=== PATIENT | female | born 1995 | race Caucasian/White ===

== ENCOUNTER 2017-06-28 23:05 | Inpatient (IN) | payer MEDICAID, OTHER ==
[~2017-06-28] VITALS: Ht 139.7 cm; Wt 88.6 kg
[~2017-06-28 23:05] MED LIST: PREN-39 PO
[2017-06-28 23:48] VITALS: Ht 139.7 cm; Wt 88.6 kg
[2017-06-28 23:49] VITALS: BP 112/61; PULSE 94; RESP 20
[2017-06-29 00:42] LABS: ADD UMIC YES; UR ASCORBIC ACID NEGATIVE (NEGATIVE); UR BACTERIA FEW /HPF (NONE SEEN); UR BILIRUBIN (Dip) NEGATIVE (NEGATIVE); UR BLOOD (Dip) NEGATIVE (NEGATIVE); UR CLARITY SLIGHTLY CLOUDY (CLEAR); UR COLOR YELLOW (YELLOW); UR GLUCOSE (Dip) 3+ mg/dL (NEGATIVE); UR KETONES (Dip) NEGATIVE (NEGATIVE); UR LEUKOCYTE ESTERASE (Dip) 3+ Leu/ul (NEGATIVE); UR NITRITE (Dip) NEGATIVE (NEGATIVE); UR RBC 2 /HPF (0-5); UR SPECIFIC GRAVITY (Dip) 1.015 (1.003-1.030); UR SQUAMOUS EPITHELIAL CELL FEW /HPF (FEW); UR TOTAL PROTEIN (Dip) NEGATIVE (NEGATIVE); UR UROBILINOGEN (Dip) NEGATIVE (NEGATIVE)
--- NOTE | 2017-06-29 01:16 | RADRPT ---
PROCEDURE: Obstetrical ultrasound, limited. CLINICAL INDICATION: Pelvic pain. TECHNIQUE: Multiple sonographic images of the pelvis were obtained using transabdominal technique . Images were obtained with giang scale and color Doppler. The images were reviewed on a PACS works tation. COMPARISON: No prior studies are available for comparison. FINDINGS: There is a single living intrauterine gestation with the fetus in a vertex presentation. hear t tones of 154 beats per minute are identified. The placenta is anterior in location, grade 2. The re is normal amniotic fluid volume with an KENIA of 12.5 cm. There is no evidence of placenta previa or abruption. Measurements were made in order to determine age. The results are as follows: BPD =8.62 cm HC =31.28 cm AC =32.60 cm FL =6.51 cm. Estimated gestational age of approximately 35 weeks and 0 days. The estimated date of delivery is 08/03/2017. The EFW = 2674 +/- 401 grams. Estimated weight percentage equals 59.5%. IMPRESSION: Single viable intrauterine gestation of approximately 35 weeks and 0 days, with an ultrasound EDUAR of 08/03/2017. .Ari Aguayo MD, MD Date Time Electronically viewed and signed by .Ari Aguayo MD, MD on 06/29/2017 01:15 .T/
[2017-06-29] MEDS ORDERED: LACTATED RINGER'S 1,000 ML IV ONE (03:00)
[2017-06-29] MEDS ORDERED: CEFAZOLIN 2 GM/50 ML (PMX) 50 ML IVPB ONE (03:00)
[2017-06-29] MEDS ORDERED: LACTATED RINGER'S 1,000 ML IV* SCH (03:00)
[2017-06-29 04:05] LABS: BASOPHILS % 0.4 % (0.0-2.0); EOSINOPHILS # 0.2 10^3/ul (0.0-0.5); EOSINOPHILS % 2.3 % (0.0-7.0); HEMATOCRIT 31.5 % (37.0-47.0); HEMOGLOBIN 10.1 g/dl (12.0-16.0); LYMPHOCYTES # 2.4 10^3/ul (0.8-2.9); LYMPHOCYTES % 24.7 % (15.0-51.0); MEAN CORPUSCULAR HEMOGLOBIN 26.6 pg (29.0-33.0); MEAN CORPUSCULAR HGB CONC 32.1 g/dl (32.0-37.0); MEAN CORPUSCULAR VOLUME 82.9 fl (82.0-101.0); MEAN PLATELET VOLUME 10.7 fl (7.4-10.4); MONOCYTE # 0.8 10^3/ul (0.3-0.9); MONOCYTES % 8.1 % (0.0-11.0); NEUTROPHILS % 63.2 % (39.0-77.0); PLATELET COUNT 307 10^3/UL (140-415); RED CELL DISTRIBUTION WIDTH 14.3 % (11.5-14.5); WHITE BLOOD COUNT 9.5 10^3/ul (4.8-10.8)
[2017-06-29 04:07] LABS: INR 0.97; PROTIME 12.9 Sec (12.2-14.2)
[2017-06-29 04:08] LABS: PARTIAL THROMBOPLASTIN TIME 28.6 Sec (25.0-35.0)
[2017-06-29] MEDS ORDERED: LACTATED RINGER'S 1,000 ML IV SCH (06:46)
--- NOTE | 2017-06-29 07:00 | HP ---
Date/Time of Note Date/Time of Note DATE: 06/29/17 TIME: 06:55 OB - History Hx of Present Free Text/Dictation June 29, 2017 : 2 Para: 1 Care: Limited Care Other Concerns: 21-year-old 2 para 1 with IUP at 35 weeks and care in [facility] she recently moved. Was trying to transfer her care however could not establish care within any other facility. She had a history of 1. She complains of lower abdominal pain and scant amount of bleeding day after intercourse. She had not been seen in the last 3 weeks in any clinic due to recent move. She denies any leaking of fluid or decreased movement. Denies any complications during her course. Past Family/Social History * Past Medical, Surgical, Family and Obstetric Histories reviewed from chart. OB Admission Exam Vital Signs Vital Signs Vital Signs Date Time Temp Pulse Resp B/P Pulse Ox O2 Delivery O2 Flow Rate FiO2 06/28/17 23:49 98.0 94 20 112/61 Room Air Physical Exam HEENT: WNL Lungs: Clear Abdomen: WNL Reflexes: Normal Cervical Dilatation: None Effacement: 0% Heart Rate: 130's Accelerations: Accelerations Present Decelerations: Variable Decelerations Varibility: Moderate Contractions on Admission: < 5 Minutes Apart Intensity: Moderate Last 72 hourBlood Glucose Bedside Glucose - 72 Hours Test 06/29/17 03:36 Bedside Glucose 168mg/dL (70-220) Last 72 hours Lab Results CBC & BMP 06/29/17 03:25 Hemoglobin A1C Test 06/29/17 03:25 Hemoglobin A1c 6.2 H OB Assessment/Plan Other Assessment: IUP at 35 weeks Lower abdominal pain Uterine irritability with occasional contractions UTI noted in urine analysis Last follow-up her visit for the last 3 weeks due to recent move history 1 Patient currently does not have any OB to continue her visit. Noted to have elevated hemoglobin A1c, cannot rule out GDM . Possible new diagnosis No records are available Size consistent with dates by reported EDC Patient started on IV antibiotic Ancef and received IV hydration labs ordered including panel as well as GBS and GC chlamydia Due to elevated hemoglobin A1c and possibility of GDM, patient will be admitted to antepartum service for possible diabetic education. Continue IV fluids as well as treatment for UTI Perinatology consult RADHAMES CHU MD Jun 29, 2017 07:00
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
[2017-06-29] MEDS: DOCUSATE SODIUM 100 MG CAP PO SCH (12:00)
[2017-06-29] MEDS ORDERED: GLUCAGON 1 MG INJ IM PRN (12:30)
[2017-06-29] MEDS ORDERED: DEXTROSE 50% 50 ML SYRINGE IV PRN ×2 (12:30)
[2017-06-29] MEDS ORDERED: GLUCOSE GEL 15 GRAM TUBE BUCCAL PRN (12:30)
[2017-06-29] MEDS ORDERED: GLUCOSE GEL 15 GRAM TUBE PO PRN ×2 (12:30)
[2017-06-29] MEDS: INSULIN ASPART [NOVOLOG] 3 ML PEN SC SCH ×3 (12:33→19:55)
[2017-06-29] MEDS: CEFAZOLIN 2 GM/50 ML (PMX) 50 ML IV SCH ×3 (12:35→23:38)
[2017-06-29] MEDS: PRENATAL VITAMIN PO SCH (12:38)
[2017-06-29 14:35] LABS: ALBUMIN 3.3 g/dl (3.3-4.9); ALBUMIN/GLOBULIN RATIO 0.89; CALCIUM 8.7 mg/dl (8.4-10.2); CREATININE 0.47 mg/dl (0.44-1.00); POTASSIUM 3.9 mmol/L (3.5-5.1)
[2017-06-29] MEDS: ACCU-CHEK XX SCH ×2 (15:40→19:31)
--- NOTE | 2017-06-29 17:03 | PN ---
Date/Time of Note Date/Time of Note DATE: 06/29/17 TIME: 16:55 OB Subjective Subjective Subjective June 29, 2017 OB hospital consult This patient is a 21 years old 2 para 1 living 1 with estimated date of confinement of 08/02/2017 which makes her 35 weeks today . she came to the hospital complaining of vaginal bleeding ,bilateral lower abdominal pain .She had a history of a preeclampsia. Due to contraction and evidence of gestational diabetes with elevated blood sugar and hemoglobin A1c of 6.2 she was admitted in the hospital for further workup and treatment. she was placed on 1200 ADA diet, her blood type was A+ PT and PTT within normal limits, hepatitis Bs surface antigen was neck, on CBC her hemoglobin was 10.1 hematocrit 31.5 .urine test also showed 3+ protein 3+ leukoesterase 13 WBC and with the signs of infection and as a preventive measure for this diabetic lady she was placed on antibiotic Laboratory Tests Test 06/28/17 23:30 06/29/17 03:25 06/29/17 03:36 06/29/17 08:15 Urine Color YELLOW Urine Clarity SLIGHTLY CLOUDY Urine pH 6.0 Urine Specific [place] 1.015 Urine Ketones NEGATIVEmg/dL Urine Nitrite NEGATIVEmg/dL Urine Bilirubin NEGATIVEmg/dL Urine Urobilinogen NEGATIVEmg/dL Urine Leukocyte Esterase 3+Hailey/ul Urine Microscopic RBC 2/HPF Urine Microscopic WBC 13/HPF Urine Squamous Epithelial Cells FEW/HPF Urine Bacteria FEW/HPF Urine Hemoglobin NEGATIVEmg/dL Urine Glucose 3+mg/dL Urine Total Protein NEGATIVEmg/dl White Blood Count 9.510^3/ul Red Blood Count 3.8010^6/ul Hemoglobin 10.1g/dl Hematocrit 31.5% Mean Corpuscular Volume 82.9fl Mean Corpuscular Hemoglobin 26.6pg Mean Corpuscular Hemoglobin Concent 32.1g/dl Red Cell Distribution Width 14.3% Platelet Count 69569^3/UL Mean Platelet Volume 10.7fl Neutrophils % 63.2% Lymphocytes % 24.7% Monocytes % 8.1% Eosinophils % 2.3% Basophils % 0.4% Nucleated Red Blood Cells % 0.0/100WBC Neutrophils # 6.010^3/ul Lymphocytes # 2.410^3/ul Monocytes # 0.810^3/ul Eosinophils # 0.210^3/ul Basophils # 0.010^3/ul Nucleated Red Blood Cells # 0.010^3/ul Prothrombin Time 12.9Sec Prothrombin Time Ratio 1.0 INR International Normalized Ratio 0.97 Activated Partial Thromboplast Time 28.6Sec Glucose Level 176mg/dl Hemoglobin A1c 6.2% Rapid Plasma Reagin NONREACTIVE Hepatitis B Surface Antigen NEGATIVE HIV (1&2) Antibody NEGATIVE Bedside Glucose 168mg/dL Glucose 1 Hour Postprandial (Timed) 244mg/dl Test 06/29/17 11:42 06/29/17 14:05 06/29/17 15:47 Bedside Glucose 168mg/dL 130mg/dL Sodium Level 137mmol/L Potassium Level 3.9mmol/L Chloride Level 107mmol/L Carbon Dioxide Level 24mmol/L Anion Gap 10 Blood Urea Nitrogen 5mg/dl Creatinine 0.47mg/dl Glucose Level 122mg/dl Calcium Level 8.7mg/dl Total Bilirubin 0.0mg/dl Direct Bilirubin 0.00mg/dl Indirect Bilirubin 0.0mg/dl Aspartate Amino Transf (AST/SGOT) 24IU/L Alanine Aminotransferase (ALT/SGPT) 36IU/L Alkaline Phosphatase 195IU/L Total Protein 7.0g/dl Albumin 3.3g/dl Globulin 3.70g/dl Albumin/Globulin Ratio 0.89 Current Medications Medications (Trade) Dose Ordered Sig/French Route PRN Reason Start Time Stop Time Status Last Admin Dose Admin Lactated Ringer's 1,000 ml @ 125 mls/hr Q8H IV* 06/29/17 03:00 06/29/17 07:28 DC 06/29/17 04:54 Cefazolin Sodium/ Dextrose 50 ml @ 100 mls/hr ONCE ONCE IVPB 06/29/17 03:00 06/29/17 03:29 DC 06/29/17 03:28 Lactated Ringer's 1,000 ml @ 1,000 mls/hr Q1H ONCE IV 06/29/17 03:00 06/29/17 03:59 DC 06/29/17 03:25 Lactated Ringer's 1,000 ml @ 100 mls/hr Q10H IV 06/29/17 06:46 06/29/17 13:53 Cefazolin Sodium/ Dextrose (Ancef 2 Gm/50 ml (Pmx)) 50 ml @ 100 mls/hr Q8 IV 06/29/17 11:30 06/29/17 12:35 Prenat Multivit/ [place]/Iron/Folic Ac () 1 tab DAILY PO 06/29/17 09:00 06/29/17 12:38 Docusate Sodium (Colace) 100 mg DAILY PO 06/29/17 09:00 Insulin Aspart (Novolog Insulin Pen) 2 HOURS AFTER MEALS SC 06/29/17 14:00 06/29/17 12:33 Diagnostic Test (Pha) (Accu-Chek) 1 ea FBSPP XX 06/29/17 14:00 Miscellaneous Information (* Miscellaneous Pharmacy Order) 1 ea OB HYPOGLYCEMIA ONCE XX 06/29/17 12:00 06/29/17 12:02 DC 06/29/17 12:51 Miscellaneous Information 1 ea NOTE XX 06/29/17 12:30 Glucose (Glutose) 15 gm Q15M PRN PO DECREASED GLUCOSE 06/29/17 12:30 Glucose (Glutose) 22.5 gm Q15M PRN PO DECREASED GLUCOSE 06/29/17 12:30 Dextrose (D50w Syringe) 25 ml Q15M PRN IV DECREASED GLUCOSE 06/29/17 12:30 Dextrose (D50w Syringe) 50 ml Q15M PRN IV DECREASED GLUCOSE 06/29/17 12:30 Glucagon (Glucagen) 1 mg Q15M PRN IM DECREASED GLUCOSE 06/29/17 12:30 Glucose (Glutose) 15 gm Q15M PRN BUCCAL DECREASED GLUCOSE 06/29/17 12:30 Prenat Multivit/ [place]/Iron/Folic Ac () 1 tab DAILY PO 06/30/17 09:00 Prenat Multivit/ Manager Progressive Care/Iron/Folic Ac () 1 tab DAILY PO 06/30/17 09:00 UNV . On ultrasound studies the placenta was anterior' a single live intrauterine gestation in vertex presentation. her KENIA was 12.5 cm no evidence of placenta previa ' her estimated gestational age was 35 weeks with EDC of 08/03/2017, her estimated weight was 2674 401 g With these finding the treatment of possible urinary tract infection as well as gestational diabetes was started .she also will be seen by perinatologist tomorrow End of dictation thank you NANDO BLANCA MD Jun 29, 2017 17:03
[2017-06-29] MEDS ORDERED: MAGNESIUM SULFATE 4 GM/100 ML 100 ML IVPB ONE (22:00)
[2017-06-29] MEDS ORDERED: MAGNESIUM SULFATE 20 GM/500 ML 500 ML IV ONE (22:06)
[2017-06-29] MEDS ORDERED: MAGNESIUM SULFATE 4 GM/100 ML 100 ML ONE (22:06)
[2017-06-29] MEDS: MAGNESIUM SULFATE 20 GM/500 ML 500 ML IV SCH (22:48)
[2017-06-30] MEDS ORDERED: BETAMET NA PHOS/AC(6 MG/ML) 5ML INJ ONE (02:45)
[2017-06-30] MEDS ORDERED: BETAMET NA PHOS/AC(6 MG/ML) 5ML INJ IM ONE (03:00)
[2017-06-30] MEDS: LACTATED RINGER'S 1,000 ML IV SCH ×2 (03:24→21:40)
[2017-06-30] MEDS: CEFAZOLIN 2 GM/50 ML (PMX) 50 ML IV SCH (06:03)
[2017-06-30] MEDS: MAGNESIUM SULFATE 20 GM/500 ML 500 ML IV SCH (07:44)
[2017-06-30] MEDS: ACCU-CHEK XX SCH ×4 (08:30→19:50)
[2017-06-30] MEDS: DOCUSATE SODIUM 100 MG CAP PO SCH (09:00)
[2017-06-30] MEDS ORDERED: PRENATAL VITAMIN PO SCH (09:00)
[2017-06-30] MEDS: PRENATAL VITAMIN PO SCH ×2 (11:00→12:04)
[2017-06-30 11:05] LABS: RUBELLA ANTIBODY - IGG 1.49 index
[2017-06-30] MEDS ORDERED: metFORMIN 500 MG TAB PO ONE (11:30)
[2017-06-30] MEDS: INSULIN ASPART [NOVOLOG] 3 ML PEN SC SCH ×3 (11:59→20:05)
[2017-06-30] MEDS ORDERED: metFORMIN 500 MG TAB PO SCH ×2 (12:00→18:05)
[2017-06-30] MEDS: NIFEdipine 10 MG CAP PO SCH ×2 (12:04→18:24)
[2017-06-30 14:04] LABS: SCRET 0.47 mg/dl (0.44-1.00)
--- NOTE | 2017-06-30 14:55 | CONS ---
DATE OF ADMISSION: 06/29/2017 DATE OF CONSULTATION: 06/30/2017 HISTORY OF PRESENT ILLNESS: The patient is a 21-year-old who presented to the hospital with complai nt of some pelvic pressure and spotting. She is currently 35 weeks and 2 days. She apparently had a hemoglobin A1c of 6.2%, which is consistent with diabetes; however, the admitting physician admini sters 1-hour glucose test which essentially worsens her diabetes. Therefore, I decided yesterday to keep the patient on sliding scale insulin until we have the effect of that 50 grams glucose is reso lved; however, apparently this morning I was notified that last night because the patient started co ntracting she was given betamethasone and was placed on magnesium sulfate. Betamethasone, again, wi ll increase her blood sugars. Her blood glucose levels in general are elevated, but not too much, w hich could be secondary to the glucose test and also the betamethasone. Her cervical length was 2.1 cm. Her history, first , she delivered around 36 weeks because of preeclampsia. Second p regnancy was a miscarriage. Currently her blood pressures are normal. REVIEW OF SYSTEMS: All systems reviewed and they are all negative, except for what is mentioned abo ve. PAST MEDICAL HISTORY: Negative. PAST SURGICAL HISTORY: x1. heart tones reassuring. Contractions occasional. IMPRESSION: Intrauterine at 35 weeks and 2 days with diabetes and hemoglobin A1c of 6.2%, received 1-hour glucose test and also given betamethasone last night which will elevate the glucose level. She is currently on magnesium sulfate. She does not feel any contractions. Cervical length of 2.1 cm, which is normal for the gestational age. She complains of some drowsines s and also she has some burning at the IV site where the magnesium is flowing. RECOMMENDATIONS: Metformin 500 mg in the morning and at bedtime up for now and continue with insuli n sliding scale. A 24-hour urine for protein and creatinine clearance, and complete metabolic panel, magnesium sulfate start Procardia 10 mg every 6 hours until the second dose of the betamethasone is given. We will monitor the patient over the weekend and if her glucose levels are overall under control, we can consider discharging patient home if she is completely asymptomatic and labor is ruled out. Dictated By: COLIN GODWIN/DENICE Conf#: [id number] DID#: [id number]
--- NOTE | 2017-06-30 17:44 | QN ---
Documentation Comment 35+wks GDMA2 labor on Metformin,Procaria and sliding scale s/p Mg and steroid NST reassuring [place] No CTXs VS stable Gen NAD Abd soft Gravid NT Genitalia Deffered -->Management as per Perinatologist --->close Observation --->possible discharge tomorrow DANUTA TAFOYA M.D. Jun 30, 2017 17:44
[2017-06-30] MEDS: metFORMIN 500 MG TAB PO SCH (21:42)
[2017-07-01] MEDS: NIFEdipine 10 MG CAP PO SCH ×4 (00:02→18:20)
[2017-07-01] MEDS ORDERED: BETAMET NA PHOS/AC(6 MG/ML) 5ML INJ IM ONE (03:00)
[2017-07-01] MEDS ORDERED: metFORMIN 500 MG TAB NGT SCH (08:00)
[2017-07-01] MEDS: ACCU-CHEK XX SCH ×4 (08:45→20:46)
[2017-07-01] MEDS: PRENATAL VITAMIN PO SCH ×3 (08:46→12:08)
[2017-07-01] MEDS: metFORMIN 500 MG TAB PO SCH ×2 (08:46→20:46)
[2017-07-01] MEDS: DOCUSATE SODIUM 100 MG CAP PO SCH (09:00)
[2017-07-01] MEDS: INSULIN ASPART [NOVOLOG] 3 ML PEN SC SCH ×3 (11:20→20:05)
--- NOTE | 2017-07-01 11:44 | QN ---
Documentation Comment 35+wks GDMA2 labor on Metformin,Procaria and sliding scale s/p Mg and steroid NST reassuring [place] No CTXs VS stable Gen NAD Abd soft Gravid NT Genitalia Deffered -->Management as per Perinatologist --->close Observation --->disscharge plan for Monday as per perinatalogist DANUTA TAFOYA M.D. Jul 01, 2017 11:44
--- NOTE | 2017-07-01 19:59 | RADRPT ---
PROCEDURE: Ultrasound of the left axilla. CLINICAL INDICATION: Palpable lesion in the left axilla. TECHNIQUE: High-resolution sonography of the left axilla at the site of the palpable lesion was pe rformed in the axial and sagittal planes. COMPARISON: None FINDINGS: There is a hypoechoic subcutaneous nodule in the left axilla at the site of the palpable lesion saul uring 0.6 x 0.3 x 0.8 cm. There is no other abnormality at the site of the palpable lesion. IMPRESSION: 1. Hypoechoic subcutaneous nodule in the left axilla measuring 0.6 x 0.3 x 0.8 cm. This is probably benign. 2. Any further management regarding the palpable lesion should be based on clinical grounds. RPTAT: QQ .Giancarlo No MD, Date Time Electronically viewed and signed by .Giancarlo No MD, on 07/01/2017 19:59 .R/
[2017-07-01] MEDS ORDERED: BISACODYL (EC) 5 MG TAB PO ONE (22:00)
[2017-07-01] MEDS ORDERED: MAGNESIUM HYDROXIDE 30ML CUP PO PRN (22:00)
[2017-07-02] MEDS: NIFEdipine 10 MG CAP PO SCH ×4 (00:45→17:32)
[2017-07-02] MEDS: LACTATED RINGER'S 1,000 ML IV SCH ×3 (02:27→15:26)
[2017-07-02] MEDS: ACCU-CHEK XX SCH ×4 (07:30→19:47)
[2017-07-02] MEDS: metFORMIN 500 MG TAB PO SCH ×2 (08:00→21:44)
[2017-07-02] MEDS: DOCUSATE SODIUM 100 MG CAP PO SCH (08:42)
[2017-07-02] MEDS: PRENATAL VITAMIN PO SCH ×2 (09:00)
[2017-07-02] MEDS: INSULIN ASPART [NOVOLOG] 3 ML PEN SC SCH ×3 (10:00→20:05)
--- NOTE | 2017-07-02 12:46 | QN ---
Documentation Comment 35+wks GDMA2 labor on Metformin,Procaria and sliding scale s/p Mg and steroid NST reassuring [place] No CTXs VS stable Gen NAD Abd soft Gravid NT Genitalia Deffered -->Management as per Perinatologist --->close Observation --->discharge plan for Monday as per perinatalogist DANUTA TAFOYA M.D. Jul 02, 2017 12:46
[2017-07-02] MEDS ORDERED: CEFAZOLIN 1 GM/50 ML (PMX) 50 ML IVPB SCH (14:30)
[2017-07-02] MEDS ORDERED: CEFTRIAXONE 1 GM/50 ML (PMX) 50 ML IVPB SCH (15:00)
[2017-07-02 15:32] LABS: BASOPHILS % 0.1 % (0.0-2.0); EOSINOPHILS % 0.1 % (0.0-7.0); HEMATOCRIT 33.4 % (37.0-47.0); HEMOGLOBIN 10.6 g/dl (12.0-16.0); LYMPHOCYTES # 1.1 10^3/ul (0.8-2.9); MEAN CORPUSCULAR HEMOGLOBIN 27.2 pg (29.0-33.0); MEAN CORPUSCULAR HGB CONC 31.7 g/dl (32.0-37.0); MEAN CORPUSCULAR VOLUME 85.9 fl (82.0-101.0); MEAN PLATELET VOLUME 10.7 fl (7.4-10.4); MONOCYTE # 0.7 10^3/ul (0.3-0.9); MONOCYTES % 5.4 % (0.0-11.0); NEUTROPHIL # 11.5 10^3/ul (1.6-7.5); NEUTROPHILS % 85.1 % (39.0-77.0); PLATELET COUNT 296 10^3/UL (140-415); RED BLOOD COUNT 3.89 10^6/ul (4.20-5.40); RED CELL DISTRIBUTION WIDTH 14.7 % (11.5-14.5); WHITE BLOOD COUNT 13.5 10^3/ul (4.8-10.8)
[2017-07-02] MEDS: SOD CHLORIDE 0.9% 1,000 ML IV SCH (15:56)
[2017-07-02] MEDS: CEFTRIAXONE 1 GM/50 ML (PMX) 50 ML IVPB SCH (16:00)
[2017-07-02] MEDS: ACETAMINOPHEN 325 MG TAB PO PRN (17:32)
[2017-07-03] MEDS: SOD CHLORIDE 0.9% 1,000 ML IV SCH ×3 (00:02→16:26)
[2017-07-03] MEDS: NIFEdipine 10 MG CAP PO SCH ×3 (00:03→13:44)
[2017-07-03] MEDS: LACTATED RINGER'S 1,000 ML IV SCH (02:30)
[2017-07-03] MEDS: ACCU-CHEK XX SCH ×4 (08:45→20:10)
[2017-07-03] MEDS: metFORMIN 500 MG TAB PO SCH (08:46)
[2017-07-03] MEDS: DOCUSATE SODIUM 100 MG CAP PO SCH (09:00)
[2017-07-03 11:08] LABS: BASOPHILS % 0.1 % (0.0-2.0); EOSINOPHILS % 0.1 % (0.0-7.0); HEMATOCRIT 31.4 % (37.0-47.0); HEMOGLOBIN 9.9 g/dl (12.0-16.0); LYMPHOCYTES # 0.8 10^3/ul (0.8-2.9); MEAN CORPUSCULAR HEMOGLOBIN 26.5 pg (29.0-33.0); MEAN CORPUSCULAR HGB CONC 31.5 g/dl (32.0-37.0); MEAN PLATELET VOLUME 10.6 fl (7.4-10.4); MONOCYTE # 0.6 10^3/ul (0.3-0.9); MONOCYTES % 8.5 % (0.0-11.0); NEUTROPHIL # 5.6 10^3/ul (1.6-7.5); NEUTROPHILS % 78.8 % (39.0-77.0); PLATELET COUNT 259 10^3/UL (140-415); RED BLOOD COUNT 3.74 10^6/ul (4.20-5.40); RED CELL DISTRIBUTION WIDTH 15.1 % (11.5-14.5); WHITE BLOOD COUNT 7.2 10^3/ul (4.8-10.8)
[2017-07-03] MEDS: INSULIN ASPART [NOVOLOG] 3 ML PEN SC SCH ×3 (11:15→20:05)
[2017-07-03 11:28] LABS: ALBUMIN/GLOBULIN RATIO 0.78; BILIRUBIN,INDIRECT 0.3 mg/dl (0-1.1); BILIRUBIN,TOTAL 0.3 mg/dl (0.2-1.3); CALCIUM 8.8 mg/dl (8.4-10.2); CREATININE 0.46 mg/dl (0.44-1.00); POTASSIUM 3.2 mmol/L (3.5-5.1); TOTAL PROTEIN 6.8 g/dl (6.1-8.1); URIC ACID 3.8 mg/dl (3.1-7.9)
--- NOTE | 2017-07-03 12:37 | PN ---
Date/Time of Note Date/Time of Note DATE: 07/03/17 TIME: 12:33 OB Subjective Subjective Subjective Patient feeling better. Discussed results of blood culture. Questions answered. OB Objective Objective Objective Gen: NAD Abd: gravid, NT OB Assessment/Plan Other Assessment: 21 y/o at 35 weeks 1. GDMA2-BS controlled on metformin 2. Infection-unknown source, blood culture positive for gram negative rods 3. labor-s/p betamethasone 4. preeclampsia-BPs normal, 24 urine elevated Other plan: 1. GDM-continue metformin 2. Infection-f/u blood culture identification and sensitivities 3. labor-no further intervention 4. preeclampsia-continue to monitor BP, f/u blood test results FUNMI ROJAS Jul 03, 2017 12:37
[2017-07-03] MEDS: PRENATAL VITAMIN PO SCH (13:43)
[2017-07-03] MEDS: CEFTRIAXONE 1 GM/50 ML (PMX) 50 ML IVPB SCH (16:25)
--- NOTE | 2017-07-03 17:24 | QN ---
Documentation Comment consult Requested of Dr. Packer and Dr. Cavazos This is a 21 year old 2 para 1 mother admitted on 06/29 with labor elevated 24 hour urine protein elevated liver enzymes and now with positive blood culture being treated with Rocephin started on 07/02. I spoke to the mother regarding the risks associated with delivery including but not limited to the following. 1. Respiratory there is minimal risk of this infant having significant respiratory disease unless all delivered by section was risk of retained lung fluid and discussed use of oxygen supplemental support. Risk of apnea prematurity at this age is also low. 2. Cardiac using these babies are stable hemodynamically we will monitor blood pressures 3. Infectious disease: Because of mother having a positive culture she is presently greater than 24 hours out on antibiotics. Mother has not ruptured membranes yet and remains afebrile. In light of the pretreatment risk for the baby are low but not negligible workup for sepsis will need to be considered based on how long the mole and is treated with antibiotics. 4. Jaundice/anemia discussed the risks of anemia especially if there are multiple lab draws and possibly a transfusion and also discussed the risks of jaundice and the use of phototherapy for treatment. 5. Nutrition initially the infant if respiratorily stable we will started on feedings and IV supplementation these babies sometimes will nipple adequately or not will have evaluation for that and then determine length of stay based on when the infant is able to take all feedings by mouth. 6. PUT IN BEAT ADJUSTER: With PIH being a possibility in this mother as well as IDDM will monitor for hypoglycemia also will do hearing screen and consider a car seat challenge prior to discharge. We will be available to care for this as the need comes up. Most likely with good results and possibly minimal to no NICU stay. THAD DONOHUE MD Jul 03, 2017 17:24
--- NOTE | 2017-07-03 18:13 | CONS ---
DATE OF ADMISSION: 06/29/2017 DATE OF CONSULTATION: 07/03/2017 INFECTIOUS DISEASE CONSULTATION REASON FOR CONSULTATION: Antibiotic management. HISTORY OF PRESENT ILLNESS: Eusebia Pina is a 21-year-old female, 2, para 1. She is 35 weeks and 6 days . She had a history of section x1. She comes in complaining o n the 5th of lower abdominal pain with scant amount of bleeding the day after intercourse. She has not been seen in the last 3 weeks in clinic. She denies any leaking fluid. On admission, white cou nt was 9.5, H and H 10.1 and 31.5. HOSPITAL COURSE: She was seen in consultation complaining of pelvic pressure and spotting. She als o was found to be somewhat diabetic, and she also was starting to have contractions. She was given betamethasone, placed on magnesium sulfate drip. Her white count today is 7.2. Her blood cultures, however, were positive for gram-negative rods. She has normal vaginal maryse, Di albicans mixe d gram-positive organisms. A breast ultrasound was done which showed subcutaneous nodules in the le ft axilla, probably benign. She was seen in consultation by Dr. Paz, feeling better. She has an i nfection, unknown source. Blood cultures for gram-negative rods. PAST MEDICAL HISTORY: 1. Operations as outlined 2. Status post . FAMILY HISTORY: Noncontributory. SOCIAL HISTORY: She does not smoke, drink or abuse drugs. ALLERGIES: NONE TO PENICILLIN, SULFA OR FOODS. MEDICATIONS: Per chart. REVIEW OF SYSTEMS: As per HPI. PHYSICAL EXAMINATION: GENERAL: The patient is a well-developed, well-nourished female who is alert, responsive, in no acu te distress. VITAL SIGNS: Stable. She is afebrile. SKIN: Without generalized rash. HEENT: Within normal limits. NECK: Supple. LYMPH NODES: None palpable. CHEST: Decreased breath sounds at the bases. HEART: Without murmur or gallop. Somewhat tachycardic. ABDOMEN: She is a 35-week female. EXTREMITIES: Without cyanosis, clubbing or edema. RECTAL AND GENITAL: Deferred. NEUROLOGIC: No focal neurological abnormalities. IMPRESSION AND PLAN: The patient has blood cultures with gram negative rods. We should repeat the blood cultures. She is already on ceftriaxone. We will change her to cefepime. I will dictate my findings to the HUMID SYSTEM OPERATOR service, to Dr. Jackson Dr. ____ . Dictated By: YASMANI BHANDARI MD, JD/DENICE Conf#: [id number] DID#: [id number] CC: RADHAMES CHU MD;*[facility]*
[2017-07-03] MEDS: CEFEPIME 1GM/50 ML (PMX) 50 ML IVPB SCH (21:43)
[2017-07-04] MEDS: SOD CHLORIDE 0.9% 1,000 ML IV SCH ×3 (02:18→19:10)
[2017-07-04 06:50] LABS: ALBUMIN 2.8 g/dl (3.3-4.9); ALBUMIN/GLOBULIN RATIO 0.73; BILIRUBIN,INDIRECT 0.1 mg/dl (0-1.1); BILIRUBIN,TOTAL 0.1 mg/dl (0.2-1.3); CALCIUM 8.9 mg/dl (8.4-10.2); CREATININE 0.47 mg/dl (0.44-1.00); TOTAL PROTEIN 6.6 g/dl (6.1-8.1)
[2017-07-04] MEDS: DOCUSATE SODIUM 100 MG CAP PO SCH (09:00)
[2017-07-04] MEDS: ACCU-CHEK XX SCH ×4 (09:27→20:36)
[2017-07-04] MEDS: CEFEPIME 1GM/50 ML (PMX) 50 ML IVPB SCH ×2 (09:32→20:52)
[2017-07-04] MEDS: PRENATAL VITAMIN PO SCH (09:33)
[2017-07-04] MEDS: INSULIN ASPART [NOVOLOG] 3 ML PEN SC SCH ×3 (10:00→20:05)
--- NOTE | 2017-07-04 15:57 | PN ---
Date/Time of Note Date/Time of Note DATE: 07/04/17 TIME: 15:51 OB Subjective Subjective Subjective July 04, 2017 OB high risk visit This patient is a 20 years old 2 para 1 now about 36 weeks and 2 days who was admitted on June 29 due to slight vaginal bleeding , abdominal pain and elevated temperature . she has gestational diabetes mellitus . Her urine culture was reported streptomysis over 10,000 on the urine culture for this reason she was placed on amoxicillin. Also her blood culture report today a Gram negative stain .No sensitivity result on this specimen However she was placed on Maxipime 1 g every 12 hours. Pending the culture and sensitivity of the bacteria in her circulation. Laboratory Tests Test 07/03/17 16:14 07/03/17 20:10 07/04/17 05:45 07/04/17 09:27 Bedside Glucose 93mg/dL 91mg/dL 68mg/dL Sodium Level 137mmol/L Potassium Level 4.0mmol/L Chloride Level 110mmol/L Carbon Dioxide Level 22mmol/L Anion Gap 9 Blood Urea Nitrogen 6mg/dl Creatinine 0.47mg/dl Glucose Level 83mg/dl Calcium Level 8.9mg/dl Total Bilirubin 0.1mg/dl Direct Bilirubin 0.00mg/dl Indirect Bilirubin 0.1mg/dl Aspartate Amino Transf (AST/SGOT) 72IU/L Alanine Aminotransferase (ALT/SGPT) 94IU/L Alkaline Phosphatase 164IU/L Total Protein 6.6g/dl Albumin 2.8g/dl Globulin 3.80g/dl Albumin/Globulin Ratio 0.73 Test 07/04/17 11:24 07/04/17 15:47 Bedside Glucose 95mg/dL 97mg/dL Current Medications Medications (Trade) Dose Ordered Sig/French Route PRN Reason Start Time Stop Time Status Last Admin Dose Admin Lactated Ringer's 1,000 ml @ 125 mls/hr Q8H IV* 06/29/17 03:00 06/29/17 07:28 DC 06/29/17 04:54 Cefazolin Sodium/ Dextrose 50 ml @ 100 mls/hr ONCE ONCE IVPB 06/29/17 03:00 06/29/17 03:29 DC 06/29/17 03:28 Lactated Ringer's 1,000 ml @ 1,000 mls/hr Q1H ONCE IV 06/29/17 03:00 06/29/17 03:59 DC 06/29/17 03:25 Lactated Ringer's 1,000 ml @ 100 mls/hr Q10H IV 06/29/17 06:46 06/30/17 00:17 DC 06/29/17 13:53 Cefazolin Sodium/ Dextrose (Ancef 2 Gm/50 ml (Pmx)) 50 ml @ 100 mls/hr Q8 IV 06/29/17 11:30 06/30/17 14:31 DC 06/30/17 06:03 Prenat Multivit/ [employer]/Iron/Folic Ac () 1 tab DAILY PO 06/29/17 09:00 07/03/17 11:22 DC 07/01/17 08:46 Docusate Sodium (Colace) 100 mg DAILY PO 06/29/17 09:00 Insulin Aspart (Novolog Insulin Pen) 2 HOURS AFTER MEALS SC 06/29/17 14:00 07/01/17 15:26 Diagnostic Test (Pha) (Accu-Chek) 1 ea FBSPP XX 06/29/17 14:00 07/04/17 09:27 Miscellaneous Information (* Miscellaneous Pharmacy Order) 1 ea OB HYPOGLYCEMIA ONCE XX 06/29/17 12:00 06/29/17 12:02 DC 06/29/17 12:51 Miscellaneous Information 1 ea NOTE XX 06/29/17 12:30 Glucose (Glutose) 15 gm Q15M PRN PO DECREASED GLUCOSE 06/29/17 12:30 Glucose (Glutose) 22.5 gm Q15M PRN PO DECREASED GLUCOSE 06/29/17 12:30 Dextrose (D50w Syringe) 25 ml Q15M PRN IV DECREASED GLUCOSE 06/29/17 12:30 Dextrose (D50w Syringe) 50 ml Q15M PRN IV DECREASED GLUCOSE 06/29/17 12:30 Glucagon (Glucagen) 1 mg Q15M PRN IM DECREASED GLUCOSE 06/29/17 12:30 Glucose (Glutose) 15 gm Q15M PRN BUCCAL DECREASED GLUCOSE 06/29/17 12:30 Prenat Multivit/ [place]/Iron/Folic Ac () 1 tab DAILY PO 06/30/17 09:00 07/04/17 09:33 Prenat Multivit/ [place]/Iron/Folic Ac () 1 tab DAILY PO 06/30/17 09:00 UNV IV Flush 10 ml 10 ml Q8 IV 06/29/17 22:00 06/29/17 22:55 DC 06/29/17 21:57 Magnesium Sulfate 100 ml @ 200 mls/hr ONCE ONCE IVPB 06/29/17 22:00 06/29/17 22:29 DC 06/29/17 22:14 Magnesium Sulfate 500 ml @ 62.5 mls/hr Q8H IV 06/29/17 22:30 06/30/17 11:28 DC 06/30/17 07:44 Magnesium Sulfate 500 ml @ ud STK-MED ONCE IV 06/29/17 22:06 06/29/17 22:07 DC Magnesium Sulfate 100 ml @ ud STK-MED ONCE .ROUTE 06/29/17 22:06 06/29/17 22:07 DC Lactated Ringer's (Lr) 1,000 ml @ 62.5 mls/hr Q16H IV 06/29/17 22:30 07/01/17 13:34 DC 06/30/17 21:40 Betamethasone Acet/Betameth SodPhos ([place] Soluspan) 12 mg ONCE ONCE IM 06/30/17 03:00 06/30/17 03:01 DC 06/30/17 03:01 Betamethasone Acet/Betameth SodPhos ([place] Soluspan) 30 mg STK-MED ONCE .ROUTE 06/30/17 02:45 06/30/17 02:46 DC Betamethasone Acet/Betameth SodPhos ([place] Soluspan) 12 mg ONCE ONCE IM 07/01/17 03:00 07/01/17 03:01 DC 07/01/17 03:03 Nifedipine (Procardia) 10 mg Q6 PO 06/30/17 12:00 07/03/17 14:34 DC 07/03/17 13:44 Metformin HCl (Glucophage) 500 mg ONCE ONCE PO 06/30/17 11:30 06/30/17 11:31 DC 06/30/17 12:04 Metformin HCl (Glucophage) 500 mg WITH BREAKFAST NGT 07/01/17 08:00 07/01/17 08:00 DC Metformin HCl (Glucophage) 500 mg WITH BREAKFAST PO 06/30/17 12:00 06/30/17 12:00 DC Metformin HCl (Glucophage) 500 mg WITH DINNER PO 06/30/17 18:05 06/30/17 18:05 DC Metformin HCl (Glucophage) 500 mg HS PO 06/30/17 21:00 07/03/17 14:35 DC 07/02/17 21:44 Metformin HCl (Glucophage) 500 mg WITH BREAKFAST PO 07/01/17 08:00 07/03/17 14:35 DC 07/03/17 08:46 IV Flush (NS 10 ml) 10 ml Q8 IV 07/01/17 14:00 07/03/17 14:36 DC 07/02/17 14:47 Bisacodyl (Dulcolax) 5 mg ONCE ONCE PO 07/01/17 22:00 07/01/17 22:01 Cancel Magnesium Hydroxide 30 ml 30 ml DAILY PRN PO CONSTIPATION 07/01/17 22:00 Cancel Lactated Ringer's 1,000 ml @ 125 mls/hr Q8H IV 07/02/17 02:30 07/03/17 11:22 DC 07/02/17 15:26 Cefazolin Sodium 50 ml @ 100 mls/hr BID IVPB 07/02/17 14:30 07/02/17 14:41 DC Ceftriaxone Sodium 50 ml @ 100 mls/hr Q12 IVPB 07/02/17 15:00 07/02/17 15:00 DC Ceftriaxone Sodium 50 ml @ 100 mls/hr Q24H IVPB 07/02/17 16:00 07/03/17 17:30 DC 07/03/17 16:25 Sodium Chloride (NS) 1,000 ml @ 125 mls/hr Q8H IV 07/02/17 16:00 07/04/17 09:33 Acetaminophen 650 mg 650 mg Q4H PRN PO PAIN AND OR ELEVATED TEMP 07/02/17 17:30 07/02/17 17:32 Cefepime HCl (Maxipime 1gm/50 ml (Pmx)) 50 ml @ 100 mls/hr Q12 IVPB 07/03/17 21:00 07/04/17 09:32 Clotrimazole (Lotrimin Cr) 1 applic BID TOP 07/04/17 13:30 Amoxicillin (Amoxicillin) 500 mg Q6 PO 07/04/17 18:00 07/04/17 18:00 DC Amoxicillin (Amoxicillin) 500 mg BID PO 07/04/17 18:00 . On exam today she is afebrile abdomen is soft chest are clear her throat is not tender no abdominal tenderness. heart tone is normal with fairly good variability and acceleration no decelerations. NANDO BLANCA MD Jul 04, 2017 15:57
[2017-07-04] MEDS: CLOTRIMAZOLE 1% 30 GM CR TOP SCH ×2 (17:45→20:52)
[2017-07-04] MEDS ORDERED: AMOXICILLIN 500 MG CAP PO SCH ×2 (18:00)
--- NOTE | 2017-07-04 19:11 | PN ---
DATE: 07/04/2017 SUBJECTIVE: No events overnight. The patient is alert, eating a sandwich, at bedside. Den ies pain, discomfort. No nausea, vomiting, diarrhea and no fevers. WBC today 7.2, H and H 9.9 and 31.4, platelets 259, neutrophils 78.8. BUN 6, creatinine 0.47. MICROBIOLOGY: Urine culture growing Strep agalactiae. Blood culture growing gram-negative rods. V aginal drainage was negative for chlamydia, gonorrhea; positive for Di albicans. ANTIMICROBIALS: The patient is on Cefepime. PHYSICAL EXAMINATION: GENERAL: An obese, well-developed, young woman who is alert, in no distress. HEENT: Head atraumatic, normocephalic. Sclerae anicteric. Buccal mucosa pink. NECK: Supple. CHEST: Rise symmetrical. Breath sounds diminished to bases. HEART: S1, S2. ABDOMEN: Soft. Bowel sounds present. EXTREMITIES: No cyanosis. ASSESSMENT: 1. Gram-negative leonides bacteremia of unclear etiology, possibly secondary to urinary tract infection. 2. Mild urinary tract infection with culture preliminary growing Streptococcus agalactiae. 3. Vaginal candidiasis. 4. . 5. Status post section. PLAN: Patient remained stable. We will continue her on current regimen. Follow repeat and final c ultures. Follow urine cultures. Add topical nystatin or Lotrimin cream to vaginal area. Dictated By: DENISA LOPEZ COMM[employer] LIVING COACH for [facility] Conf#: [id number] DID#: [id number]
[2017-07-04] MEDS ORDERED: LACTATED RINGER'S 1,000 ML IV ONE (23:30)
[2017-07-05] MEDS: SOD CHLORIDE 0.9% 1,000 ML IV SCH ×3 (02:02→20:27)
[2017-07-05] MEDS: ACETAMINOPHEN 325 MG TAB PO PRN (02:14)
[2017-07-05 07:52] LABS: ALBUMIN 2.9 g/dl (3.3-4.9); ALBUMIN/GLOBULIN RATIO 0.85; BILIRUBIN,INDIRECT 0.1 mg/dl (0-1.1); BILIRUBIN,TOTAL 0.1 mg/dl (0.2-1.3); CALCIUM 8.7 mg/dl (8.4-10.2); CREATININE 0.46 mg/dl (0.44-1.00); POTASSIUM 3.8 mmol/L (3.5-5.1); TOTAL PROTEIN 6.3 g/dl (6.1-8.1)
[2017-07-05] MEDS: ACCU-CHEK XX SCH ×4 (09:00→20:17)
--- NOTE | 2017-07-05 09:35 | PN ---
Date/Time of Note Date/Time of Note DATE: 07/05/17 TIME: 09:35 OB Subjective Subjective Subjective Denies any complaint, comfortable in bed, denies any vaginal bleeding, uterine contractions or leaking of fluid. Denies any fever or chills. Denies any abdominal pain. OB Objective Objective Objective Appearance: Alert and oriented 4. Patient does not appear to be in any acute distress. Abdomen: Soft, gravid, fundal height consistent with gestational age NST: Category 1 Occasional contractions on the monitor seen. Patient does not feeling currently Hematology - 72 Hrs Test 07/02/17 15:10 07/03/17 10:34 White Blood Count 13.510^3/ul (4.8-10.8) #H 7.210^3/ul (4.8-10.8) # Red Blood Count 3.8910^6/ul (4.20-5.40) L 3.7410^6/ul (4.20-5.40) L Hemoglobin 10.6g/dl (12.0-16.0) L 9.9g/dl (12.0-16.0) L Hematocrit 33.4% (37.0-47.0) L 31.4% (37.0-47.0) L Mean Corpuscular Volume 85.9fl (82.0-101.0) 84.0fl (82.0-101.0) Mean Corpuscular Hemoglobin 27.2pg (29.0-33.0) L 26.5pg (29.0-33.0) L Mean Corpuscular Hemoglobin Concent 31.7g/dl (32.0-37.0) L 31.5g/dl (32.0-37.0) L Red Cell Distribution Width 14.7% (11.5-14.5) H 15.1% (11.5-14.5) H Platelet Count 80830^3/UL (140-415) 19112^3/UL (140-415) Mean Platelet Volume 10.7fl (7.4-10.4) H 10.6fl (7.4-10.4) H Neutrophils % 85.1% (39.0-77.0) H 78.8% (39.0-77.0) H Lymphocytes % 8.0% (15.0-51.0) L 11.0% (15.0-51.0) L Monocytes % 5.4% (0.0-11.0) 8.5% (0.0-11.0) Eosinophils % 0.1% (0.0-7.0) 0.1% (0.0-7.0) Basophils % 0.1% (0.0-2.0) 0.1% (0.0-2.0) Nucleated Red Blood Cells % 0.0/100WBC (0.0-0.0) 0.0/100WBC (0.0-0.0) Neutrophils # 11.510^3/ul (1.6-7.5) H 5.610^3/ul (1.6-7.5) Lymphocytes # 1.110^3/ul (0.8-2.9) 0.810^3/ul (0.8-2.9) Monocytes # 0.710^3/ul (0.3-0.9) 0.610^3/ul (0.3-0.9) Eosinophils # 0.010^3/ul (0.0-0.5) 0.010^3/ul (0.0-0.5) Basophils # 0.010^3/ul (0.0-0.1) 0.010^3/ul (0.0-0.1) Nucleated Red Blood Cells # 0.010^3/ul (0.0-0.0) 0.010^3/ul (0.0-0.0) Chemistry Test 07/02/17 12:30 07/02/17 14:44 07/02/17 19:47 07/03/17 08:47 Bedside Glucose 111mg/dL (70-220) 76mg/dL (70-220) 106mg/dL (70-220) 96mg/dL (70-220) Test 07/03/17 10:34 07/03/17 11:13 07/03/17 16:14 07/03/17 20:10 Sodium Level 135mmol/L (135-144) Potassium Level 3.2mmol/L (3.5-5.1) L Chloride Level 105mmol/L (97-110) Carbon Dioxide Level 23mmol/L (21-31) Anion Gap 10 (8-16) Blood Urea Nitrogen 4mg/dl (7-20) L Creatinine 0.46mg/dl (0.44-1.00) Glucose Level 122mg/dl (70-220) Uric Acid 3.8mg/dl (3.1-7.9) Calcium Level 8.8mg/dl (8.4-10.2) Total Bilirubin 0.3mg/dl (0.2-1.3) Direct Bilirubin 0.00mg/dl (0.00-0.20) Indirect Bilirubin 0.3mg/dl (0-1.1) Aspartate Amino Transf (AST/SGOT) 84IU/L (15-46) H Alanine Aminotransferase (ALT/SGPT) 88IU/L (13-69) H Alkaline Phosphatase 176IU/L (42-121) H Total Protein 6.8g/dl (6.1-8.1) Albumin 3.0g/dl (3.3-4.9) L Globulin 3.80g/dl (1.3-3.2) H Albumin/Globulin Ratio 0.78 Bedside Glucose 104mg/dL (70-220) 93mg/dL (70-220) 91mg/dL (70-220) Test 07/04/17 05:45 07/04/17 09:27 07/04/17 11:24 07/04/17 15:47 Sodium Level 137mmol/L (135-144) Potassium Level 4.0mmol/L (3.5-5.1) Chloride Level 110mmol/L (97-110) Carbon Dioxide Level 22mmol/L (21-31) Anion Gap 9 (8-16) Blood Urea Nitrogen 6mg/dl (7-20) L Creatinine 0.47mg/dl (0.44-1.00) Glucose Level 83mg/dl (70-220) Calcium Level 8.9mg/dl (8.4-10.2) Total Bilirubin 0.1mg/dl (0.2-1.3) L Direct Bilirubin 0.00mg/dl (0.00-0.20) Indirect Bilirubin 0.1mg/dl (0-1.1) Aspartate Amino Transf (AST/SGOT) 72IU/L (15-46) H Alanine Aminotransferase (ALT/SGPT) 94IU/L (13-69) H Alkaline Phosphatase 164IU/L (42-121) H Total Protein 6.6g/dl (6.1-8.1) Albumin 2.8g/dl (3.3-4.9) L Globulin 3.80g/dl (1.3-3.2) H Albumin/Globulin Ratio 0.73 Bedside Glucose 68mg/dL (70-220) L 95mg/dL (70-220) 97mg/dL (70-220) Test 07/04/17 19:43 07/05/17 06:35 07/05/17 09:22 Bedside Glucose 112mg/dL (70-220) 70mg/dL (70-220) Sodium Level 137mmol/L (135-144) Potassium Level 3.8mmol/L (3.5-5.1) Chloride Level 109mmol/L (97-110) Carbon Dioxide Level 22mmol/L (21-31) Anion Gap 10 (8-16) Blood Urea Nitrogen 8mg/dl (7-20) Creatinine 0.46mg/dl (0.44-1.00) Glucose Level 75mg/dl (70-220) Calcium Level 8.7mg/dl (8.4-10.2) Total Bilirubin 0.1mg/dl (0.2-1.3) L Direct Bilirubin 0.00mg/dl (0.00-0.20) Indirect Bilirubin 0.1mg/dl (0-1.1) Aspartate Amino Transf (AST/SGOT) 50IU/L (15-46) H Alanine Aminotransferase (ALT/SGPT) 80IU/L (13-69) H Alkaline Phosphatase 164IU/L (42-121) H Total Protein 6.3g/dl (6.1-8.1) Albumin 2.9g/dl (3.3-4.9) L Globulin 3.40g/dl (1.3-3.2) H Albumin/Globulin Ratio 0.85 OB Assessment/Plan Other Assessment: IUP at 36 weeks Limited care. Last visit in the last 3 weeks due to change of insurance and movement Never had any 1 hour glucose tolerance gestational screening test. Hemoglobin A1c was elevated.. started on metformin. Took off due to elevated liver function tests, cannot rule out .metformin effect Blood sugars now fairly good control with ADA diet patient with evidence of UTI started on antibiotics. Had an episode of fever with culture positive for gram-negative rods. Antibiotics changed to cefepime currently being followed by ID. Recent blood culture negative Patient had been asymptomatic and afebrile Status post course of steroid History of 1 no evidence of labor. Patient is normal. No evidence of PIH. Transaminitis likely effect of metformin. Decreasing AST/ALT after metformin was stopped Continue expectant management. She is to monitor closely Follow-up with ID. Appreciate recommendation. Possibly can stop antibiotics since patient had been more than 48 hours afebrile RADHAMES CHU MD Jul 05, 2017 09:35
--- NOTE | 2017-07-05 09:57 | CONS ---
Date/Time of Note Date/Time of Note DATE: 07/05/17 TIME: 09:53 Assessment/Plan Assessment/Plan Chief Complaint/Hosp Course SUBJECTIVE: No events overnight. No fevers ANTIMICROBIALS: Cefepime, Amoxicillin. ASSESSMENT: 1. Bacteremia of unclear etiology==> cx + PSA, repeat bld cx negative. 2. Mild urinary tract infection==> Streptococcus agalactiae. 3. Vaginal candidiasis, continue topical Lotrimin. 4. . 5. Hx section. PLAN: Patient remained stable. Repeat bld cx negative, pt will require 2 weeks treatment with IV Cefepime, consider PICC, also will dc Amoxicillin as Cefepime has an excellent strep coverage Problems: Consultation Date/Type/Reason Admit Date/Time Jun 29, 2017 at 06:45 Initial Consult Date Type of Consultation: ID Exam/Review of Systems Vital Signs Vitals Intake and Output 07/04/17 07/04/17 07/05/17 15:00 23:00 07:00 Intake Total 925 ml 1700 ml 500 ml Output Total 700 ml 1000 ml 1000 ml Balance 225 ml 700 ml -500 ml Results Result Diagram: 07/03/17 1034 07/05/17 0635 Results 24 hrs Laboratory Tests Test 07/04/17 11:24 07/04/17 15:47 07/04/17 19:43 07/05/17 06:35 Bedside Glucose 95 97 112 Sodium Level 137 Potassium Level 3.8 Chloride Level 109 Carbon Dioxide Level 22 Anion Gap 10 Blood Urea Nitrogen 8 Creatinine 0.46 Glucose Level 75 Calcium Level 8.7 Total Bilirubin 0.1 L Direct Bilirubin 0.00 Indirect Bilirubin 0.1 Aspartate Amino Transf (AST/SGOT) 50 H Alanine Aminotransferase (ALT/SGPT) 80 H Alkaline Phosphatase 164 H Total Protein 6.3 Albumin 2.9 L Globulin 3.40 H Albumin/Globulin Ratio 0.85 Test 07/05/17 09:22 Bedside Glucose 70 Medications Medications Current Medications Docusate Sodium (Colace) 100 mg DAILY PO ; Start 06/29/17 at 09:00 Diagnostic Test (Pha) (Accu-Chek) 1 ea FBSPP XX Last administered on t 20:36; Admin Dose 1 EA; Start 06/29/17 at 14:00 Miscellaneous Information 1 ea NOTE XX ; Start 06/29/17 at 12:30 Glucose (Glutose) 15 gm Q15M PRN PO DECREASED GLUCOSE; Start 06/29/17 at 12:30 Glucose (Glutose) 22.5 gm Q15M PRN PO DECREASED GLUCOSE; Start 06/29/17 at 12: 30 Dextrose (D50w Syringe) 25 ml Q15M PRN IV DECREASED GLUCOSE; Start 06/29/17 at 12:30 Dextrose (D50w Syringe) 50 ml Q15M PRN IV DECREASED GLUCOSE; Start 06/29/17 at 12:30 Glucagon (Glucagen) 1 mg Q15M PRN IM DECREASED GLUCOSE; Start 06/29/17 at 12:30 Glucose (Glutose) 15 gm Q15M PRN BUCCAL DECREASED GLUCOSE; Start 06/29/17 at 12 :30 Prenat Multivit/ [place]/Iron/Folic Ac 1 tab 1 tab DAILY PO Last administered on 07/04/17 09:33; Admin Dose 1 TAB; Start 06/30/17 at 09:00 Sodium Chloride (NS) 1,000 ml @ 125 mls/hr Q8H IV Last administered on 02:02; Admin Dose 125 MLS/HR; Start 07/02/17 at 16:00 Acetaminophen 650 mg 650 mg Q4H PRN PO PAIN AND OR ELEVATED TEMP Last administered on 07/05/17 02:14; Admin Dose 650 MG; Start 07/02/17 at 17:30 Cefepime HCl (Maxipime 1gm/50 ml (Pmx)) 50 ml @ 100 mls/hr Q12 IVPB Last administered on 07/04/17 20:52; Admin Dose 100 MLS/HR; Start 07/03/17 at 21:00 Clotrimazole (Lotrimin Cr) 1 applic BID TOP Last administered on 07/04/17 20: 52; Admin Dose 1 APPLIC; Start 07/04/17 at 13:30 Amoxicillin (Amoxicillin) 500 mg BID PO Last administered on 07/04/17 17:44; Admin Dose 500 MG; Start 07/04/17 at 18:00; Stop 07/11/17 at 06:00 DENISA LOPEZ NP Jul 05, 2017 09:57
[2017-07-05] MEDS: PRENATAL VITAMIN PO SCH ×2 (09:59→10:04)
[2017-07-05] MEDS: INSULIN ASPART [NOVOLOG] 3 ML PEN SC SCH ×3 (10:00→20:05)
[2017-07-05] MEDS: CEFEPIME 1GM/50 ML (PMX) 50 ML IVPB SCH ×2 (10:07→21:31)
[2017-07-05] MEDS: DOCUSATE SODIUM 100 MG CAP PO SCH (10:10)
[2017-07-05] MEDS: CLOTRIMAZOLE 1% 30 GM CR TOP SCH ×2 (10:11→21:00)
[2017-07-05] MEDS: AMOXICILLIN 500 MG CAP PO SCH ×2 (10:11→21:39)
[2017-07-06] MEDS: SOD CHLORIDE 0.9% 1,000 ML IV SCH (05:33)
--- NOTE | 2017-07-06 06:51 | CONS ---
DATE OF ADMISSION: 06/29/2017 DATE OF CONSULTATION: 07/05/2017 The patient had a positive blood culture for which she was placed on cefepime and internal medicine is on board. However, the repeat blood culture is negative. Urine culture shows positive group B s trep for which she is on amoxicillin twice daily to be continued for 7 days. Her last fever was on 07/02/2017 around 7:00 p.m. and since then she has been afebrile. Her glucose values are overall no rmal without any necessity for medication. RECOMMENDATIONS: Internal medicine to decide whether she needs to continue on cefepime since her bl ood culture is negative. If she needs to continue on cefepime, then she needs to stay in-house mamta use it is an IV medication. If not, she can go home with followup with the primary OB, but she need s to finish the amoxicillin for 7 days total. Also please note that she is to be treated for group B strep in labor. Dictated By: COLIN GODWIN/DENICE Conf#: [id number] DID#: [id number]
[2017-07-06] MEDS: CLOTRIMAZOLE 1% 30 GM CR TOP SCH ×2 (09:00→21:42)
[2017-07-06] MEDS: ACCU-CHEK XX SCH ×4 (09:15→20:30)
[2017-07-06] MEDS: INSULIN ASPART [NOVOLOG] 3 ML PEN SC SCH ×3 (10:00→20:30)
[2017-07-06] MEDS: PRENATAL VITAMIN PO SCH (10:08)
[2017-07-06] MEDS: AMOXICILLIN 500 MG CAP PO SCH (10:09)
[2017-07-06] MEDS: CEFEPIME 1GM/50 ML (PMX) 50 ML IVPB SCH ×2 (10:09→21:42)
[2017-07-06] MEDS: DOCUSATE SODIUM 100 MG CAP PO SCH (10:14)
[2017-07-06] MEDS ORDERED: [UNRECOGNIZED DRUG - REMARK] XX SCH (13:30)
--- NOTE | 2017-07-06 13:36 | CONS ---
Date/Time of Note Date/Time of Note DATE: 07/06/17 TIME: 13:33 Consult Date/Type/Reason Admit Date/Time Jun 29, 2017 at 06:45 Type of Consultation: ID Objective Intake and Output 07/05/17 07/05/17 07/06/17 15:00 23:00 07:00 Intake Total 1150 ml 1600 ml 875 ml Output Total 1500 ml 1400 ml Balance -350 ml 200 ml 875 ml Results/Medications Result Diagram: 07/03/17 1034 07/05/17 0635 Results 24 hrs Laboratory Tests Test 07/05/17 20:16 07/06/17 09:13 07/06/17 11:14 Bedside Glucose 104 85 96 Medications Current Medications Docusate Sodium (Colace) 100 mg DAILY PO ; Start 06/29/17 at 09:00 Diagnostic Test (Pha) (Accu-Chek) 1 ea FBSPP XX Last administered on 09:15; Admin Dose 1 EA; Start 06/29/17 at 14:00 Miscellaneous Information 1 ea NOTE XX ; Start 06/29/17 at 12:30 Glucose (Glutose) 15 gm Q15M PRN PO DECREASED GLUCOSE; Start 06/29/17 at 12:30 Glucose (Glutose) 22.5 gm Q15M PRN PO DECREASED GLUCOSE; Start 06/29/17 at 12: 30 Dextrose (D50w Syringe) 25 ml Q15M PRN IV DECREASED GLUCOSE; Start 06/29/17 at 12:30 Dextrose (D50w Syringe) 50 ml Q15M PRN IV DECREASED GLUCOSE; Start 06/29/17 at 12:30 Glucagon (Glucagen) 1 mg Q15M PRN IM DECREASED GLUCOSE; Start 06/29/17 at 12:30 Glucose (Glutose) 15 gm Q15M PRN BUCCAL DECREASED GLUCOSE; Start 06/29/17 at 12 :30 Prenat Multivit/ [place]/Iron/Folic Ac 1 tab 1 tab DAILY PO Last administered on 07/06/17 10:08; Admin Dose 1 TAB; Start 06/30/17 at 09:00 Sodium Chloride (NS) 1,000 ml @ 125 mls/hr Q8H IV Last administered on 05:33; Admin Dose 125 MLS/HR; Start 07/02/17 at 16:00 Acetaminophen 650 mg 650 mg Q4H PRN PO PAIN AND OR ELEVATED TEMP Last administered on 07/05/17 02:14; Admin Dose 650 MG; Start 07/02/17 at 17:30 Cefepime HCl (Maxipime 1gm/50 ml (Pmx)) 50 ml @ 100 mls/hr Q12 IVPB Last administered on 07/06/17 10:09; Admin Dose 100 MLS/HR; Start 07/03/17 at 21:00 Clotrimazole (Lotrimin Cr) 1 applic BID TOP Last administered on 07/05/17 10: 11; Admin Dose 1 APPLIC; Start 07/04/17 at 13:30 Miscellaneous Information (* Miscellaneous Pharmacy Order) all ivpb medications should... ONCE XX ; Start 07/06/17 at 13:30; Status UNV Assessment/Plan Chief Complaint/Hosp Course SUBJECTIVE: No events overnight. No fevers, alert, feels good, wants to go home ANTIMICROBIALS: Cefepime PHYSICAL EXAMINATION: GENERAL: An obese, well-developed, young woman who is alert, in no distress. HEENT: Head atraumatic, normocephalic. Sclerae anicteric. Buccal mucosa pink. NECK: Supple. CHEST: Rise symmetrical. Breath sounds diminished to bases. HEART: S1, S2. ABDOMEN: Soft. Bowel sounds present. EXTREMITIES: No cyanosis. ASSESSMENT: 1. PSA bacteremia of unclear etiology==> repeat bld cx neg 2. Mild urinary tract infection with culture preliminary growing Streptococcus agalactiae. 3. Vaginal candidiasis. 4. . 5. Hx section. PLAN: Patient remained stable. Repeat bld cx negative. Pt will require 2 weeks treatment for bacteremia with IV Cefepime, consider PICC, cm to arrange home health [facility] staff/pt Problems: DENISA LOPEZ NP Jul 06, 2017 13:36
[2017-07-06] MEDS: LACTATED RINGER'S 1,000 ML IV SCH (18:55)
--- NOTE | 2017-07-07 01:12 | PN ---
Date/Time of Note Date/Time of Note DATE: 07/07/17 TIME: 01:01 OB Subjective Subjective Subjective no subjective symptoms except u.c 3x in hr OB Objective Objective Objective VSS afebrile EFM u.c 3x/hr 2hr PP 97 just on ADA AST/ALT 50/80 Cr 0,46 OB Assessment/Plan Other Assessment: IUP 36w1d with previous C?S A1DM pos blood culture Other plan: cont cefepime as ID rec TRISHA CULLEN MD Jul 07, 2017 01:12
[2017-07-07] MEDS: ACCU-CHEK XX SCH ×4 (07:30→20:57)
[2017-07-07] MEDS: CLOTRIMAZOLE 1% 30 GM CR TOP SCH ×2 (09:00→20:58)
[2017-07-07] MEDS: INSULIN ASPART [NOVOLOG] 3 ML PEN SC SCH ×3 (10:00→20:05)
[2017-07-07] MEDS: CEFEPIME 1GM/50 ML (PMX) 50 ML IVPB SCH ×2 (10:02→20:58)
[2017-07-07] MEDS: DOCUSATE SODIUM 100 MG CAP PO SCH (10:02)
[2017-07-07] MEDS: PRENATAL VITAMIN PO SCH (10:02)
[2017-07-07] MEDS: LACTATED RINGER'S 1,000 ML IV SCH (17:26)
[2017-07-08] MEDS: CEFEPIME 1GM/50 ML (PMX) 50 ML IVPB SCH ×2 (09:18→20:53)
[2017-07-08] MEDS: ACCU-CHEK XX SCH ×4 (10:10→20:39)
[2017-07-08] MEDS: DOCUSATE SODIUM 100 MG CAP PO SCH (10:14)
[2017-07-08] MEDS: CLOTRIMAZOLE 1% 30 GM CR TOP SCH ×2 (10:15→20:53)
[2017-07-08] MEDS: PRENATAL VITAMIN PO SCH (10:15)
[2017-07-08] MEDS: INSULIN ASPART [NOVOLOG] 3 ML PEN SC SCH ×3 (11:15→20:05)
--- NOTE | 2017-07-08 15:34 | CONS ---
Date/Time of Note Date/Time of Note DATE: 07/08/17 TIME: 15:23 Assessment/Plan Assessment/Plan Chief Complaint/Hosp Course ID PROGRESS NOTE CURRENT ABX: DAY #6=> Cefepime 24H INTERVAL SUMMARY * A/A/O sitting up in bed with family in room, stable, no fevers, no cough, no dysuria Physical Exam Physical Exam Constitutional: VSS, NAD HEENT: Unremarkable Neck: Supple, full ROM Respiratory: Equal chest rise bilaterally, without dyspnea on observation Cardiovascular: nl pulse Gastrointestinal: Soft, NT Extremities: Warm Neurological: nl mental status, nl speech, nl strength ID ASSESSMENT 21 yo F 36 weeks gestation admit with: 1. Sepsis w/(+)PSAR blood cultures on 07/02/17 -> etiology unclear ? asymptomatic PNA vs URI? * Repeat BCx 07/03/17 (-) day #4 2. Low colony count bacteruria = not compelling for true UTI 3. Vaginal candidiasis 4. Metabolic syndrome: Overweight + hyperglycemia 5. Transaminitis 6. Hx of (- )MRSA Nares- ABX ALLERGIES: KNDA CURRENT ABX: DAY # 6 => Cefepime ID RECOMMENDATIONS 1. The recommendation is to complete 14 day course of Cefepime for PSAR bacteremia. 2. Topical / intravaginal antifungals per SHOTBLAST OPERATOR . Problems: Consultation Date/Type/Reason Admit Date/Time Jun 29, 2017 at 06:45 Initial Consult Date Type of Consultation: ID Exam/Review of Systems Vital Signs Vitals Intake and Output 07/07/17 07/07/17 07/08/17 15:00 23:00 07:00 Intake Total 800 ml 850 ml 800 ml Output Total 1900 ml 1000 ml 850 ml Balance -1100 ml -150 ml -50 ml Results Result Diagram: 07/05/17 0635 Results 24 hrs Laboratory Tests Test 07/07/17 19:36 07/08/17 10:12 07/08/17 12:10 Bedside Glucose 94 88 100 Medications Medications Current Medications Docusate Sodium (Colace) 100 mg DAILY PO Last administered on 07/08/17 10:14 ; Admin Dose 100 MG; Start 06/29/17 at 09:00 Diagnostic Test (Pha) (Accu-Chek) 1 ea FBSPP XX Last administered on 20:57; Admin Dose 1 EA; Start 06/29/17 at 14:00 Miscellaneous Information 1 ea NOTE XX ; Start 06/29/17 at 12:30 Glucose (Glutose) 15 gm Q15M PRN PO DECREASED GLUCOSE; Start 06/29/17 at 12:30 Glucose (Glutose) 22.5 gm Q15M PRN PO DECREASED GLUCOSE; Start 06/29/17 at 12: 30 Dextrose (D50w Syringe) 25 ml Q15M PRN IV DECREASED GLUCOSE; Start 06/29/17 at 12:30 Dextrose (D50w Syringe) 50 ml Q15M PRN IV DECREASED GLUCOSE; Start 06/29/17 at 12:30 Glucagon (Glucagen) 1 mg Q15M PRN IM DECREASED GLUCOSE; Start 06/29/17 at 12:30 Glucose (Glutose) 15 gm Q15M PRN BUCCAL DECREASED GLUCOSE; Start 06/29/17 at 12 :30 Prenat Multivit/ [place]/Iron/Folic Ac () 1 tab DAILY PO Last administered on 07/08/17 10:15; Admin Dose 1 TAB; Start 06/30/17 at 09:00 Acetaminophen 650 mg 650 mg Q4H PRN PO PAIN AND OR ELEVATED TEMP Last administered on 07/05/17 02:14; Admin Dose 650 MG; Start 07/02/17 at 17:30 Cefepime HCl (Maxipime 1gm/50 ml (Pmx)) 50 ml @ 100 mls/hr Q12 IVPB Last administered on 07/08/17 09:18; Admin Dose 100 MLS/HR; Start 07/03/17 at 21:00 Clotrimazole (Lotrimin Cr) 1 applic BID TOP Last administered on 07/08/17 10: 15; Admin Dose 1 APPLIC; Start 07/04/17 at 13:30 Miscellaneous Information all ivpb medications should... ONCE XX ; Start at 13:30 Lactated Ringer's (Lr) 1,000 ml @ 50 mls/hr Q20H IV Last administered on 07/07 17:26; Admin Dose 50 MLS/HR; Start 07/06/17 at 16:00 PORTER OSHEA NP Jul 08, 2017 15:33
[2017-07-08] MEDS: LACTATED RINGER'S 1,000 ML IV SCH (15:35)
--- NOTE | 2017-07-08 16:40 | QN ---
Documentation Comment Progress Note Laborist HD #9 Antibiotic day # 6 21 y.o. with an IUP at 36w 3d with GDM and h/o a UTI (group B strep) and a + blood culture with pseudomonas with an unknown source. Pt on Cefipime and, per infectious disease, needs 14 days of IV antibiotic therapy. We are on Day 6. Pt is afebrile and completely w/o complaints.We are not providing any other care for the pt at this time except for this twice daily IV antibiotic as the oral meds either don't get adequate blood levels or cannot be given in . This hospital does not have an outpt infusion service which would be much more cost effective or if the pt can get home health care services approved by [facility]. This will be up to a casey saw operator to figure out but in the meantime the pt remains here as an inpatient. LUCILA OVALLE MD Jul 08, 2017 16:40
[2017-07-09] MEDS: LACTATED RINGER'S 1,000 ML IV SCH (03:58)
[2017-07-09] MEDS: DOCUSATE SODIUM 100 MG CAP PO SCH (09:00)
[2017-07-09] MEDS: CEFEPIME 1GM/50 ML (PMX) 50 ML IVPB SCH ×2 (09:29→21:28)
[2017-07-09] MEDS: ACCU-CHEK XX SCH ×3 (09:29→17:25)
[2017-07-09] MEDS: PRENATAL VITAMIN PO SCH (09:29)
[2017-07-09] MEDS: CLOTRIMAZOLE 1% 30 GM CR TOP SCH ×2 (09:31→21:28)
--- NOTE | 2017-07-09 16:04 | CONS ---
Date/Time of Note Date/Time of Note DATE: 07/09/17 TIME: 16:03 Assessment/Plan Assessment/Plan Chief Complaint/Hosp Course ID PROGRESS NOTE CURRENT ABX: DAY #7 => Cefepime 24H INTERVAL SUMMARY * No new issues -- no fevers, no diarrhea, no dysuria * She is ambulatory in room, took shower this am Physical Exam Physical Exam Constitutional: VSS, NAD HEENT: Unremarkable Neck: Supple, full ROM Respiratory: Equal chest rise bilaterally, without dyspnea on observation Cardiovascular: nl pulse Gastrointestinal: Soft, NT Extremities: Warm Neurological: nl mental status, nl speech, nl strength ID ASSESSMENT 21 yo F 36 weeks gestation admit with: 1. Sepsis w/(+)PSAR blood cultures on 07/02/17 -> etiology unclear ? asymptomatic PNA vs URI? * Repeat BCx 07/03/17 (-) day #4 2. Low colony count bacteruria = not compelling for true UTI 3. Vaginal candidiasis 4. Metabolic syndrome: Overweight + hyperglycemia 5. Transaminitis 6. Hx of (- )MRSA Nares- ABX ALLERGIES: KNDA CURRENT ABX: DAY # 7 => Cefepime ID RECOMMENDATIONS 1. The recommendation is to complete 14 day course of Cefepime for PSAR bacteremia. 2. Topical / intravaginal antifungals per HYDROELECTRIC PLANT STRUCTURAL ENGINEER . Problems: Consultation Date/Type/Reason Admit Date/Time Jun 29, 2017 at 06:45 Type of Consultation: ID Exam/Review of Systems Vital Signs Vitals Intake and Output 07/08/17 07/08/17 07/09/17 14:59 22:59 06:59 Intake Total 150 ml 600 ml 625 ml Output Total 750 ml Balance 150 ml 600 ml -125 ml Results Result Diagram: 07/05/17 0635 Results 24 hrs Laboratory Tests Test 07/08/17 20:39 07/09/17 09:36 07/09/17 12:14 Bedside Glucose 105 80 78 Medications Medications Current Medications Docusate Sodium (Colace) 100 mg DAILY PO Last administered on 07/08/17 10:14 ; Admin Dose 100 MG; Start 06/29/17 at 09:00 Diagnostic Test (Pha) (Accu-Chek) 1 ea FBSPP XX Last administered on 12:18; Admin Dose 1 EA; Start 10/5/17 at 14:00 Prenat Multivit/ [place]/Iron/Folic Ac () 1 tab DAILY PO Last administered on 07/09/17 09:29; Admin Dose 1 TAB; Start 06/30/17 at 09:00 Acetaminophen 650 mg 650 mg Q4H PRN PO PAIN AND OR ELEVATED TEMP Last administered on 07/05/17 02:14; Admin Dose 650 MG; Start 07/02/17 at 17:30 Cefepime HCl (Maxipime 1gm/50 ml (Pmx)) 50 ml @ 100 mls/hr Q12 IVPB Last administered on 07/09/17 09:29; Admin Dose 100 MLS/HR; Start 07/03/17 at 21:00 Clotrimazole (Lotrimin Cr) 1 applic BID TOP Last administered on 07/09/17 09: 31; Admin Dose 1 APPLIC; Start 07/04/17 at 13:30 Miscellaneous Information (* Miscellaneous Pharmacy Order) all ivpb medications should... ONCE XX ; Start 07/06/17 at 13:30 IV Flush (NS 10 ml) 10 ml Q8 IV ; Start 07/09/17 at 22:00 PORTER OSHEA NP Jul 09, 2017 16:04
--- NOTE | 2017-07-09 17:06 | QN ---
Documentation Comment iup 36wks pos blood cultures pt doing well per nursing vss a/p iup 36 weeks contnue IV abx SARAI GREWAL MD Jul 09, 2017 17:06
[2017-07-10] MEDS: ACCU-CHEK XX SCH ×4 (08:54→20:34)
[2017-07-10] MEDS: PRENATAL VITAMIN PO SCH (09:13)
[2017-07-10] MEDS: DOCUSATE SODIUM 100 MG CAP PO SCH (09:13)
[2017-07-10] MEDS: CEFEPIME 1GM/50 ML (PMX) 50 ML IVPB SCH ×2 (09:14→20:38)
[2017-07-10] MEDS: CLOTRIMAZOLE 1% 30 GM CR TOP SCH ×2 (09:31→20:38)
--- NOTE | 2017-07-10 13:18 | CONS ---
Date/Time of Note Date/Time of Note DATE: 07/10/17 TIME: Consult Date/Type/Reason Admit Date/Time Jun 29, 2017 at 06:45 Type of Consultation: ID Objective Intake and Output 07/09/17 07/09/17 07/10/17 15:00 23:00 07:00 Intake Total 440 ml 350 ml Output Total 500 ml 400 ml Balance -60 ml -50 ml Results/Medications Results 24 hrs Laboratory Tests Test 07/10/17 09:10 07/10/17 11:50 Bedside Glucose 76 98 Medications Current Medications Docusate Sodium (Colace) 100 mg DAILY PO Last administered on 07/10/17 09:13 ; Admin Dose 100 MG; Start 06/29/17 at 09:00 Diagnostic Test (Pha) (Accu-Chek) 1 ea FBSPP XX Last administered on 11:30; Admin Dose 1 EA; Start 06/29/17 at 14:00 Prenat Multivit/ [place]/Iron/Folic Ac () 1 tab DAILY PO Last administered on 07/10/17 09:13; Admin Dose 1 TAB; Start 06/30/17 at 09:00 Acetaminophen 650 mg 650 mg Q4H PRN PO PAIN AND OR ELEVATED TEMP Last administered on 07/05/17 02:14; Admin Dose 650 MG; Start 07/02/17 at 17:30 Cefepime HCl (Maxipime 1gm/50 ml (Pmx)) 50 ml @ 100 mls/hr Q12 IVPB Last administered on 07/10/17 09:14; Admin Dose 100 MLS/HR; Start 07/03/17 at 21:00 Clotrimazole (Lotrimin Cr) 1 applic BID TOP Last administered on 07/10/17 09: 31; Admin Dose 1 APPLIC; Start 07/04/17 at 13:30 Miscellaneous Information (* Miscellaneous Pharmacy Order) all ivpb medications should... ONCE XX ; Start 07/06/17 at 13:30 IV Flush (NS 10 ml) 10 ml Q8 IV Last administered on 07/10/17 09:30; Admin Dose 10 ML; Start 07/09/17 at 22:00 Assessment/Plan Chief Complaint/Hosp Course SUBJECTIVE: No events overnight. Patient is alert, feels good, no fevers ANTIMICROBIALS: Cefepime PHYSICAL EXAMINATION: GENERAL: An obese, well-developed, young woman who is alert, in no distress. HEENT: Head atraumatic, normocephalic. Sclerae anicteric. Buccal mucosa pink. NECK: Supple. CHEST: Rise symmetrical. Breath sounds diminished to bases. HEART: S1, S2. ABDOMEN: Soft. Bowel sounds present. EXTREMITIES: No cyanosis. ASSESSMENT: 1. PSA bacteremia of unclear etiology==> repeat bld cx neg 2. Mild urinary tract infection with culture preliminary growing Streptococcus agalactiae. 3. Vaginal candidiasis. 4. . 5. Hx section. PLAN: Patient remained stable. Repeat bld cx negative. Continue on IV Cefepime for 7 more days DW staff/pt Problems: DENISA LOPEZ NP Jul 10, 2017 13:18
--- NOTE | 2017-07-10 17:50 | QN ---
Documentation Comment iup 36 weeks bactermia on iv abs vss nst reactive a/p iup 36 weeks bacterimia- continue iv abx SARAI GREWAL MD Jul 10, 2017 17:50
[2017-07-11] MEDS: ACCU-CHEK XX SCH ×4 (09:41→21:17)
[2017-07-11] MEDS: DOCUSATE SODIUM 100 MG CAP PO SCH (09:42)
[2017-07-11] MEDS: CLOTRIMAZOLE 1% 30 GM CR TOP SCH ×2 (09:42→21:07)
[2017-07-11] MEDS: PRENATAL VITAMIN PO SCH (09:42)
[2017-07-11] MEDS: CEFEPIME 1GM/50 ML (PMX) 50 ML IVPB SCH ×2 (09:42→21:06)
[2017-07-11] MEDS: ACETAMINOPHEN 325 MG TAB PO PRN (15:52)
--- NOTE | 2017-07-11 17:47 | QN ---
Documentation Comment 36+wks GDMA2 labor on Metformin,Procaria and sliding scale s/p sepsis on 14 days of antibitoics s/p Mg and steroid NST reassuring [place] No CTXs VS stable Gen NAD Abd soft Gravid NT Genitalia Deffered -->Management as per Perinatologist --->close Observation DANUTA TAFOYA M.D. Jul 11, 2017 17:47
[2017-07-12] MEDS: ACCU-CHEK XX SCH ×4 (09:00→21:50)
[2017-07-12] MEDS: DOCUSATE SODIUM 100 MG CAP PO SCH (09:06)
[2017-07-12] MEDS: CEFEPIME 1GM/50 ML (PMX) 50 ML IVPB SCH ×2 (09:06→20:57)
[2017-07-12] MEDS: PRENATAL VITAMIN PO SCH (09:06)
[2017-07-12] MEDS: CLOTRIMAZOLE 1% 30 GM CR TOP SCH ×2 (09:12→21:09)
[2017-07-12] MEDS ORDERED: DIPHTH/TET/ACEL PERTUSS (ADULT) 0.5 ML VIAL IM* ONE (10:00)
[2017-07-13] MEDS: ACCU-CHEK XX SCH ×4 (08:30→22:52)
[2017-07-13] MEDS: CEFEPIME 1GM/50 ML (PMX) 50 ML IVPB SCH ×2 (08:57→20:55)
[2017-07-13] MEDS: PRENATAL VITAMIN PO SCH (08:58)
[2017-07-13] MEDS: DOCUSATE SODIUM 100 MG CAP PO SCH (08:58)
[2017-07-13] MEDS: CLOTRIMAZOLE 1% 30 GM CR TOP SCH ×2 (08:59→20:55)
--- NOTE | 2017-07-13 22:33 | CONS ---
Date/Time of Note Date/Time of Note DATE: 07/13/17 TIME: 22:32 Consult Date/Type/Reason Admit Date/Time Jun 29, 2017 at 06:45 Type of Consultation: ID Results/Medications Results 24 hrs Laboratory Tests Test 07/13/17 08:36 07/13/17 15:59 Bedside Glucose 86 89 Medications Current Medications Docusate Sodium (Colace) 100 mg DAILY PO Last administered on 07/13/17 08:58 ; Admin Dose 100 MG; Start 06/29/17 at 09:00 Diagnostic Test (Pha) (Accu-Chek) 1 ea FBSPP XX Last administered on 15:30; Admin Dose 1 EA; Start 06/29/17 at 14:00 Prenat Multivit/ [place]/Iron/Folic Ac () 1 tab DAILY PO Last administered on 07/13/17 08:58; Admin Dose 1 TAB; Start 06/30/17 at 09:00 Acetaminophen 650 mg 650 mg Q4H PRN PO PAIN AND OR ELEVATED TEMP Last administered on 07/11/17 15:52; Admin Dose 650 MG; Start 07/02/17 at 17:30 Cefepime HCl (Maxipime 1gm/50 ml (Pmx)) 50 ml @ 100 mls/hr Q12 IVPB Last administered on 07/13/17 20:55; Admin Dose 100 MLS/HR; Start 07/03/17 at 21:00 Clotrimazole (Lotrimin Cr) 1 applic BID TOP Last administered on 07/13/17 20: 55; Admin Dose 1 APPLIC; Start 07/04/17 at 13:30 Miscellaneous Information (* Miscellaneous Pharmacy Order) all ivpb medications should... ONCE XX ; Start 07/06/17 at 13:30 IV Flush (NS 10 ml) 10 ml Q8 IV Last administered on 07/13/17 21:42; Admin Dose 10 ML; Start 07/09/17 at 22:00 Assessment/Plan Chief Complaint/Hosp Course SUBJECTIVE: No events overnight. Patient is alert, feels good, no fevers ANTIMICROBIALS: Cefepime PHYSICAL EXAMINATION: GENERAL: An obese, well-developed, young woman who is alert, in no distress. HEENT: Head atraumatic, normocephalic. Sclerae anicteric. Buccal mucosa pink. NECK: Supple. CHEST: Rise symmetrical. Breath sounds diminished to bases. HEART: S1, S2. ABDOMEN: Soft. Bowel sounds present. EXTREMITIES: No cyanosis. ASSESSMENT: 1. S/p PSA bacteremia==> repeat bld cx neg 2. Mild urinary tract infection with culture preliminary growing Streptococcus agalactiae. 3. Vaginal candidiasis. 4. . 5. Hx section. PLAN: Patient remained stable. Completing abx DW staff/pt Problems: DENISA LOPEZ NP Jul 13, 2017 22:33
[2017-07-14] MEDS: DOCUSATE SODIUM 100 MG CAP PO SCH (09:12)
[2017-07-14] MEDS: PRENATAL VITAMIN PO SCH (09:12)
[2017-07-14] MEDS: CEFEPIME 1GM/50 ML (PMX) 50 ML IVPB SCH ×2 (09:12→21:24)
[2017-07-14] MEDS: ACCU-CHEK XX SCH ×4 (09:26→20:34)
[2017-07-14] MEDS: CLOTRIMAZOLE 1% 30 GM CR TOP SCH ×2 (09:35→21:25)
[2017-07-14] MEDS ORDERED: LACTATED RINGER'S 1,000 ML IV SCH (19:00)
[2017-07-15] MEDS: ACCU-CHEK XX SCH ×4 (07:30→20:05)
[2017-07-15] MEDS: CEFEPIME 1GM/50 ML (PMX) 50 ML IVPB SCH ×2 (09:00→21:09)
[2017-07-15] MEDS: CLOTRIMAZOLE 1% 30 GM CR TOP SCH ×2 (09:00→21:09)
[2017-07-15] MEDS: DOCUSATE SODIUM 100 MG CAP PO SCH (10:43)
[2017-07-15] MEDS: PRENATAL VITAMIN PO SCH (10:43)
--- NOTE | 2017-07-15 14:39 | QN ---
Documentation Comment July 15, 2017 Hospital visit This patient is a 21 years old 2 para 1 who was admitted in the hospital about 2 weeks ago at 35 and a half weeks. She is now 37 weeks and 3 days Her gestational diabetes was diagnosed was placed in 2000-calorie ADA diet she had evidence of infection septicemia pseudomonas aeruginosa was isolated and the patient was placed on cefepime 1 g every 12 hours. today her blood sugar status is basically normal 86 mg she is afebrile no contractions her heart tracing is reactive Laboratory Tests Test 07/14/17 16:24 07/14/17 21:14 07/15/17 12:47 Bedside Glucose 85mg/dL 104mg/dL 86mg/dL Current Medications Medications (Trade) Dose Ordered Sig/French Route PRN Reason Start Time Stop Time Status Last Admin Dose Admin Lactated Ringer's 1,000 ml @ 125 mls/hr Q8H IV* 06/29/17 03:00 06/29/17 07:28 DC 06/29/17 04:54 Cefazolin Sodium/ Dextrose 50 ml @ 100 mls/hr ONCE ONCE IVPB 06/29/17 03:00 06/29/17 03:29 DC 06/29/17 03:28 Lactated Ringer's 1,000 ml @ 1,000 mls/hr Q1H ONCE IV 06/29/17 03:00 06/29/17 03:59 DC 06/29/17 03:25 Lactated Ringer's 1,000 ml @ 100 mls/hr Q10H IV 06/29/17 06:46 06/30/17 00:17 DC 06/29/17 13:53 Cefazolin Sodium/ Dextrose (Ancef 2 Gm/50 ml (Pmx)) 50 ml @ 100 mls/hr Q8 IV 06/29/17 11:30 06/30/17 14:31 DC 06/30/17 06:03 Prenat Multivit/ [place]/Iron/Folic Ac () 1 tab DAILY PO 06/29/17 09:00 07/03/17 11:22 DC 07/01/17 08:46 Docusate Sodium (Colace) 100 mg DAILY PO 06/29/17 09:00 07/15/17 10:43 Insulin Aspart (Novolog Insulin Pen) 2 HOURS AFTER MEALS SC 06/29/17 14:00 07/09/17 07:51 DC 07/01/17 15:26 Diagnostic Test (Pha) (Accu-Chek) 1 ea FBSPP XX 06/29/17 14:00 07/14/17 20:34 Miscellaneous Information (* Miscellaneous Pharmacy Order) 1 ea OB HYPOGLYCEMIA ONCE XX 06/29/17 12:00 06/29/17 12:02 DC 06/29/17 12:51 Miscellaneous Information 1 ea NOTE XX 06/29/17 12:30 07/09/17 08:07 DC Glucose (Glutose) 15 gm Q15M PRN PO DECREASED GLUCOSE 06/29/17 12:30 07/09/17 08:07 DC Glucose (Glutose) 22.5 gm Q15M PRN PO DECREASED GLUCOSE 06/29/17 12:30 07/09/17 08:07 DC Dextrose (D50w Syringe) 25 ml Q15M PRN IV DECREASED GLUCOSE 06/29/17 12:30 07/09/17 08:07 DC Dextrose (D50w Syringe) 50 ml Q15M PRN IV DECREASED GLUCOSE 06/29/17 12:30 07/09/17 08:07 DC Glucagon (Glucagen) 1 mg Q15M PRN IM DECREASED GLUCOSE 06/29/17 12:30 07/09/17 08:07 DC Glucose (Glutose) 15 gm Q15M PRN BUCCAL DECREASED GLUCOSE 06/29/17 12:30 07/09/17 08:07 DC Prenat Multivit/ [place]/Iron/Folic Ac () 1 tab DAILY PO 06/30/17 09:00 07/15/17 10:43 Prenat Multivit/ [employer]/Iron/Folic Ac () 1 tab DAILY PO 06/30/17 09:00 UNV IV Flush 10 ml 10 ml Q8 IV 06/29/17 22:00 06/29/17 22:55 DC 06/29/17 21:57 Magnesium Sulfate 100 ml @ 200 mls/hr ONCE ONCE IVPB 06/29/17 22:00 06/29/17 22:29 DC 06/29/17 22:14 Magnesium Sulfate 500 ml @ 62.5 mls/hr Q8H IV 06/29/17 22:30 06/30/17 11:28 DC 06/30/17 07:44 Magnesium Sulfate 500 ml @ ud STK-MED ONCE IV 06/29/17 22:06 06/29/17 22:07 DC Magnesium Sulfate 100 ml @ ud STK-MED ONCE .ROUTE 06/29/17 22:06 06/29/17 22:07 DC Lactated Ringer's (Lr) 1,000 ml @ 62.5 mls/hr Q16H IV 06/29/17 22:30 07/01/17 13:34 DC 06/30/17 21:40 Betamethasone Acet/Betameth SodPhos ([place] Soluspan) 12 mg ONCE ONCE IM 06/30/17 03:00 06/30/17 03:01 DC 06/30/17 03:01 Betamethasone Acet/Betameth SodPhos ([place] Soluspan) 30 mg STK-MED ONCE .ROUTE 06/30/17 02:45 06/30/17 02:46 DC Betamethasone Acet/Betameth SodPhos ([place] Soluspan) 12 mg ONCE ONCE IM 07/01/17 03:00 07/01/17 03:01 DC 07/01/17 03:03 Nifedipine (Procardia) 10 mg Q6 PO 06/30/17 12:00 07/03/17 14:34 DC 07/03/17 13:44 Metformin HCl (Glucophage) 500 mg ONCE ONCE PO 06/30/17 11:30 06/30/17 11:31 DC 06/30/17 12:04 Metformin HCl (Glucophage) 500 mg WITH BREAKFAST NGT 07/01/17 08:00 07/01/17 08:00 DC Metformin HCl (Glucophage) 500 mg WITH BREAKFAST PO 06/30/17 12:00 06/30/17 12:00 DC Metformin HCl (Glucophage) 500 mg WITH DINNER PO 06/30/17 18:05 06/30/17 18:05 DC Metformin HCl (Glucophage) 500 mg HS PO 06/30/17 21:00 07/03/17 14:35 DC 07/02/17 21:44 Metformin HCl (Glucophage) 500 mg WITH BREAKFAST PO 07/01/17 08:00 07/03/17 14:35 DC 07/03/17 08:46 IV Flush (NS 10 ml) 10 ml Q8 IV 07/01/17 14:00 07/03/17 14:36 DC 07/02/17 14:47 Bisacodyl (Dulcolax) 5 mg ONCE ONCE PO 07/01/17 22:00 07/01/17 22:01 Cancel Magnesium Hydroxide 30 ml 30 ml DAILY PRN PO CONSTIPATION 07/01/17 22:00 Cancel Lactated Ringer's 1,000 ml @ 125 mls/hr Q8H IV 07/02/17 02:30 07/03/17 11:22 DC 07/02/17 15:26 Cefazolin Sodium 50 ml @ 100 mls/hr BID IVPB 07/02/17 14:30 07/02/17 14:41 DC Ceftriaxone Sodium 50 ml @ 100 mls/hr Q12 IVPB 07/02/17 15:00 07/02/17 15:00 DC Ceftriaxone Sodium 50 ml @ 100 mls/hr Q24H IVPB 07/02/17 16:00 07/03/17 17:30 DC 07/03/17 16:25 Sodium Chloride (NS) 1,000 ml @ 125 mls/hr Q8H IV 07/02/17 16:00 07/06/17 15:45 DC 07/06/17 05:33 Acetaminophen 650 mg 650 mg Q4H PRN PO PAIN AND OR ELEVATED TEMP 07/02/17 17:30 07/11/17 15:52 Cefepime HCl (Maxipime 1gm/50 ml (Pmx)) 50 ml @ 100 mls/hr Q12 IVPB 07/03/17 21:00 07/15/17 09:00 Clotrimazole (Lotrimin Cr) 1 applic BID TOP 07/04/17 13:30 07/14/17 21:25 Amoxicillin (Amoxicillin) 500 mg Q6 PO 07/04/17 18:00 07/04/17 18:00 DC Amoxicillin 500 mg 500 mg BID PO 07/04/17 18:00 07/05/17 09:58 DC 07/04/17 17:44 Lactated Ringer's (Lr) 1,000 ml @ 1,000 mls/hr Q1H ONCE IV 07/04/17 23:30 07/05/17 00:29 DC 07/04/17 23:27 Amoxicillin (Amoxicillin) 500 mg Q12 PO 07/05/17 10:00 07/06/17 13:01 DC 07/06/17 10:09 Miscellaneous Information all ivpb medications should... ONCE XX 07/06/17 13:30 Lactated Ringer's (Lr) 1,000 ml @ 50 mls/hr Q20H IV 07/06/17 16:00 07/09/17 14:47 DC 07/09/17 03:58 IV Flush (NS 10 ml) 10 ml Q8 IV 07/09/17 22:00 07/14/17 20:38 DC 07/14/17 05:40 Diphtheria/ Tetanus/Acell Pertussis 0.5 ml 0.5 ml ONCE ONCE IM* 07/12/17 10:00 07/12/17 10:01 DC 07/12/17 20:51 Lactated Ringer's (Lr) 1,000 ml @ 125 mls/hr Q8H IV 07/14/17 19:00 07/15/17 00:35 DC 07/14/17 21:23 The plan is to continue antibiotic which will end on 17 July which is 2 days later and she will be discharged home to be followed by her director funds development and to be admitted for her repeat section about 10 days later. NANDO BLANCA MD Jul 15, 2017 14:39
--- NOTE | 2017-07-15 14:53 | PN ---
Date/Time of Note Date/Time of Note DATE: 07/15/17 TIME: 14:42 OB Subjective Subjective Subjective July 13, 2017 Hospital visit This patient was admitted in the hospital for the first time on June 29, 2017 with the following description of her condition: ( This patient is a 21 years old 2 para 1 living 1 with estimated date of confinement of 08/02/2017 which makes her 35 weeks today . she came to the hospital complaining of vaginal bleeding ,bilateral lower abdominal pain .She had a history of a preeclampsia. Due to contraction and evidence of gestational diabetes with elevated blood sugar and hemoglobin A1c of 6.2 she was admitted in the hospital for further workup and treatment. she was placed on 1200 ADA diet) Laboratory Tests Test 07/14/17 16:24 07/14/17 21:14 07/15/17 12:47 Bedside Glucose 85mg/dL 104mg/dL 86mg/dL Current Medications Medications (Trade) Dose Ordered Sig/French Route PRN Reason Start Time Stop Time Status Last Admin Dose Admin Lactated Ringer's 1,000 ml @ 125 mls/hr Q8H IV* 06/29/17 03:00 06/29/17 07:28 DC 06/29/17 04:54 Cefazolin Sodium/ Dextrose 50 ml @ 100 mls/hr ONCE ONCE IVPB 06/29/17 03:00 06/29/17 03:29 DC 06/29/17 03:28 Lactated Ringer's 1,000 ml @ 1,000 mls/hr Q1H ONCE IV 06/29/17 03:00 06/29/17 03:59 DC 06/29/17 03:25 Lactated Ringer's 1,000 ml @ 100 mls/hr Q10H IV 06/29/17 06:46 06/30/17 00:17 DC 06/29/17 13:53 Cefazolin Sodium/ Dextrose (Ancef 2 Gm/50 ml (Pmx)) 50 ml @ 100 mls/hr Q8 IV 06/29/17 11:30 06/30/17 14:31 DC 06/30/17 06:03 Prenat Multivit/ Oliver/Iron/Folic Ac () 1 tab DAILY PO 06/29/17 09:00 07/03/17 11:22 DC 07/01/17 08:46 Docusate Sodium (Colace) 100 mg DAILY PO 06/29/17 09:00 07/15/17 10:43 Insulin Aspart (Novolog Insulin Pen) 2 HOURS AFTER MEALS SC 06/29/17 14:00 07/09/17 07:51 DC 07/01/17 15:26 Diagnostic Test (Pha) (Accu-Chek) 1 ea FBSPP XX 06/29/17 14:00 07/14/17 20:34 Miscellaneous Information (* Miscellaneous Pharmacy Order) 1 ea OB HYPOGLYCEMIA ONCE XX 06/29/17 12:00 06/29/17 12:02 DC 06/29/17 12:51 Miscellaneous Information 1 ea NOTE XX 06/29/17 12:30 07/09/17 08:07 DC Glucose (Glutose) 15 gm Q15M PRN PO DECREASED GLUCOSE 06/29/17 12:30 07/09/17 08:07 DC Glucose (Glutose) 22.5 gm Q15M PRN PO DECREASED GLUCOSE 06/29/17 12:30 07/09/17 08:07 DC Dextrose (D50w Syringe) 25 ml Q15M PRN IV DECREASED GLUCOSE 06/29/17 12:30 07/09/17 08:07 DC Dextrose (D50w Syringe) 50 ml Q15M PRN IV DECREASED GLUCOSE 06/29/17 12:30 07/09/17 08:07 DC Glucagon (Glucagen) 1 mg Q15M PRN IM DECREASED GLUCOSE 06/29/17 12:30 07/09/17 08:07 DC Glucose (Glutose) 15 gm Q15M PRN BUCCAL DECREASED GLUCOSE 06/29/17 12:30 07/09/17 08:07 DC Prenat Multivit/ System Development Manager/Iron/Folic Ac () 1 tab DAILY PO 06/30/17 09:00 07/15/17 10:43 Prenat Multivit/ Oliver/Iron/Folic Ac () 1 tab DAILY PO 06/30/17 09:00 UNV IV Flush 10 ml 10 ml Q8 IV 06/29/17 22:00 06/29/17 22:55 DC 06/29/17 21:57 Magnesium Sulfate 100 ml @ 200 mls/hr ONCE ONCE IVPB 06/29/17 22:00 06/29/17 22:29 DC 06/29/17 22:14 Magnesium Sulfate 500 ml @ 62.5 mls/hr Q8H IV 06/29/17 22:30 06/30/17 11:28 DC 06/30/17 07:44 Magnesium Sulfate 500 ml @ ud STK-MED ONCE IV 06/29/17 22:06 06/29/17 22:07 DC Magnesium Sulfate 100 ml @ ud STK-MED ONCE .ROUTE 06/29/17 22:06 06/29/17 22:07 DC Lactated Ringer's (Lr) 1,000 ml @ 62.5 mls/hr Q16H IV 06/29/17 22:30 07/01/17 13:34 DC 06/30/17 21:40 Betamethasone Acet/Betameth SodPhos (Celestone Soluspan) 12 mg ONCE ONCE IM 06/30/17 03:00 06/30/17 03:01 DC 06/30/17 03:01 Betamethasone Acet/Betameth SodPhos (Celestone Soluspan) 30 mg STK-MED ONCE .ROUTE 06/30/17 02:45 06/30/17 02:46 DC Betamethasone Acet/Betameth SodPhos (Celestone Soluspan) 12 mg ONCE ONCE IM 07/01/17 03:00 07/01/17 03:01 DC 07/01/17 03:03 Nifedipine (Procardia) 10 mg Q6 PO 06/30/17 12:00 07/03/17 14:34 DC 07/03/17 13:44 Metformin HCl (Glucophage) 500 mg ONCE ONCE PO 06/30/17 11:30 06/30/17 11:31 DC 06/30/17 12:04 Metformin HCl (Glucophage) 500 mg WITH BREAKFAST NGT 07/01/17 08:00 07/01/17 08:00 DC Metformin HCl (Glucophage) 500 mg WITH BREAKFAST PO 06/30/17 12:00 06/30/17 12:00 DC Metformin HCl (Glucophage) 500 mg WITH DINNER PO 06/30/17 18:05 06/30/17 18:05 DC Metformin HCl (Glucophage) 500 mg HS PO 06/30/17 21:00 07/03/17 14:35 DC 07/02/17 21:44 Metformin HCl (Glucophage) 500 mg WITH BREAKFAST PO 07/01/17 08:00 07/03/17 14:35 DC 07/03/17 08:46 IV Flush (NS 10 ml) 10 ml Q8 IV 07/01/17 14:00 07/03/17 14:36 DC 07/02/17 14:47 Bisacodyl (Dulcolax) 5 mg ONCE ONCE PO 07/01/17 22:00 07/01/17 22:01 Cancel Magnesium Hydroxide 30 ml 30 ml DAILY PRN PO CONSTIPATION 07/01/17 22:00 Cancel Lactated Ringer's 1,000 ml @ 125 mls/hr Q8H IV 07/02/17 02:30 07/03/17 11:22 DC 07/02/17 15:26 Cefazolin Sodium 50 ml @ 100 mls/hr BID IVPB 07/02/17 14:30 07/02/17 14:41 DC Ceftriaxone Sodium 50 ml @ 100 mls/hr Q12 IVPB 07/02/17 15:00 07/02/17 15:00 DC Ceftriaxone Sodium 50 ml @ 100 mls/hr Q24H IVPB 07/02/17 16:00 07/03/17 17:30 DC 07/03/17 16:25 Sodium Chloride (NS) 1,000 ml @ 125 mls/hr Q8H IV 07/02/17 16:00 07/06/17 15:45 DC 07/06/17 05:33 Acetaminophen 650 mg 650 mg Q4H PRN PO PAIN AND OR ELEVATED TEMP 07/02/17 17:30 07/11/17 15:52 Cefepime HCl (Maxipime 1gm/50 ml (Pmx)) 50 ml @ 100 mls/hr Q12 IVPB 07/03/17 21:00 07/15/17 09:00 Clotrimazole (Lotrimin Cr) 1 applic BID TOP 07/04/17 13:30 07/14/17 21:25 Amoxicillin (Amoxicillin) 500 mg Q6 PO 07/04/17 18:00 07/04/17 18:00 DC Amoxicillin 500 mg 500 mg BID PO 07/04/17 18:00 07/05/17 09:58 DC 07/04/17 17:44 Lactated Ringer's (Lr) 1,000 ml @ 1,000 mls/hr Q1H ONCE IV 07/04/17 23:30 07/05/17 00:29 DC 07/04/17 23:27 Amoxicillin (Amoxicillin) 500 mg Q12 PO 07/05/17 10:00 07/06/17 13:01 DC 07/06/17 10:09 Miscellaneous Information all ivpb medications should... ONCE XX 07/06/17 13:30 Lactated Ringer's (Lr) 1,000 ml @ 50 mls/hr Q20H IV 07/06/17 16:00 07/09/17 14:47 DC 07/09/17 03:58 IV Flush (NS 10 ml) 10 ml Q8 IV 07/09/17 22:00 07/14/17 20:38 DC 07/14/17 05:40 Diphtheria/ Tetanus/Acell Pertussis 0.5 ml 0.5 ml ONCE ONCE IM* 07/12/17 10:00 07/12/17 10:01 DC 07/12/17 20:51 Lactated Ringer's (Lr) 1,000 ml @ 125 mls/hr Q8H IV 07/14/17 19:00 07/15/17 00:35 DC 07/14/17 21:23 Later due to evidence of septicemia with pseudomonal aeruginosa Was placed on cefepime 1 g every 12 hours. Her blood glucose did gradually come under control Her antibiotic will continue under 2 days. The plan is to discharge her on 17 July to be followed by her professor of social work in the clinic And to be admitted for repeat section in 2 weeks. NANDO BLANCA MD Jul 15, 2017 14:52
[2017-07-15] MEDS ORDERED: SOD CHLORIDE 0.9% 1,000 ML IV ONE (22:30)
[2017-07-16] MEDS: SOD CHLORIDE 0.9% 1,000 ML IV SCH ×2 (00:24→06:49)
[2017-07-16] MEDS ORDERED: NIFEdipine 10 MG CAP PO ONE (00:30)
[2017-07-16] MEDS: ACCU-CHEK XX SCH ×4 (07:30→19:43)
[2017-07-16] MEDS: CLOTRIMAZOLE 1% 30 GM CR TOP SCH ×2 (09:00→20:45)
[2017-07-16] MEDS: CEFEPIME 1GM/50 ML (PMX) 50 ML IVPB SCH ×2 (09:28→20:43)
[2017-07-16] MEDS: DOCUSATE SODIUM 100 MG CAP PO SCH (09:28)
[2017-07-16] MEDS: PRENATAL VITAMIN PO SCH (09:28)
[2017-07-17] MEDS: ACCU-CHEK XX SCH (07:30)
[2017-07-17] MEDS: CEFEPIME 1GM/50 ML (PMX) 50 ML IVPB SCH (08:57)
[2017-07-17] MEDS: DOCUSATE SODIUM 100 MG CAP PO SCH (08:57)
[2017-07-17] MEDS: PRENATAL VITAMIN PO SCH (09:00)
[2017-07-17] MEDS: CLOTRIMAZOLE 1% 30 GM CR TOP SCH (09:00)
--- NOTE | 2017-07-17 12:38 | PD.PPDC ---
DRYING OVEN ATTENDANT Discharge Instruction Condition Patient Condition: Good Diet Diet: Special Diet Activity/Restrictions Activity: Normal Activity Restrictions: No Sexual Activity Follow-up Follow-up with Physician: 1, Week/Weeks Provider Information: folow up with your OBGYn or go to [facility] to care by one week. Return to [facility] with any problems Return to clinic for BANK OFFICER Instructions: Fever greater than 101 Chills More than 2 pads per hour Unable to tolerate diet SARAI GREWAL MD Jul 17, 2017 12:38
--- NOTE | 2017-07-18 06:50 | DS ---
DATE OF ADMISSION: 06/29/2017 DATE OF DISCHARGE: 07/17/2017 DISCHARGE DIAGNOSES 1. Intrauterine at 37 and 5/7 weeks. 2. Gestational diabetes. 3. Pseudomonas aeruginosa bacteremia, resolved. HISTORY AND HOSPITAL COURSE: The patient is a 21-year-old G2, P1 who presented at 35 weeks complain ing of abdominal pain. Patient was found to have some uterine contractions, also had UTI. Patient was admitted. Also had elevated A1c, possibly GDM. The patient was direct admitted for IV antibiot ics and also for elevated A1c. The patient initially started on Ancef. The patient also has finish ed a course of betamethasone. Laboratory examination, on initial examination, the patient's WBC was 9.5, hemoglobin was 10.1. The patient's urine culture showed mixed organism. The patient also had some blood cultures which grew back Pseudomonas aeruginosa. ID consult was obtained who recommende d the patient receive 14 days of IV antibiotics with cefepime, which she has had during the course o f her stay. The patient has not had any further issues, was basically hospitalized for 2 weeks for the cefepime IV antibiotic injections recommended by ID. The patient on 07/17/2017 is now 14 days w ith it. The patient has no complaints. On day of discharge, patient is doing well. PHYSICAL EXAMINATION: VITAL SIGNS: Within normal limits. HEART: Regular rhythm. CHEST: Clear to auscultation bilaterally. ABDOMEN: Soft, nontender. No rebound or guarding. Fundal height is 38 cm. EXTREMITIES: There is no edema. The patient at this point will be discharged home. Patient instructed to continue checking her bloo d sugars and report any high levels. The patient currently has no doctor in the surrounding area. The patient instructed to call her insurance company for a doctor within her area and also given ins tructions to call Hospital if she cannot find a doctor. The patient was also instructed to re turn to [facility] with any kind of bleeding, leaking, abdominal pain or any other concerns . All questions were answered, and patient is stable upon discharge. Dictated By: SARAI GREWAL MD /NTS Conf#: [id number] DID#: [id number]
== END 2017-07-17 13:23 | disposition home or self-care (01) | DRG 781 ==
LOC: OBT 23:05 → L-D 23:05 → OBT 06-29 07:07 → OBG 06-29 11:36
PROVIDERS: ADMIT Obstetrics & Gynecology Obstetrics; ATTEND Obstetrics & Gynecology Obstetrics
DX: O23.43 Unspecified infection of urinary tract in pregnancy, third trimester (principal); O47.03 False labor before 37 completed weeks of gestation, third trimester; O98.813 Other maternal infectious and parasitic diseases complicating pregnancy, third trimester; O24.419 Gestational diabetes mellitus in pregnancy, unspecified control; B95.5 Unspecified streptococcus as the cause of diseases classified elsewhere; Z3A.35 35 weeks gestation of pregnancy
CPT/HCPCS: 36415; 76642; 76815; 80053; 81001; 82575; 82947; 82950; 82962; 83036; 83735; 84156; 84560; 85025; 85610; 85730; 86592; 86703; 86762; 86900; 86901; 87040; 87081; 87086; 87340; 87591; 90715; 96360; 96361; 96375; G0463; J0690; J0692; J0696; J0702; J1815; J3475; J7030; J7120

== ENCOUNTER 2017-07-24 08:25 | Inpatient (IN) | payer OTHER ==
[~2017-07-24] VITALS: Ht 142.2 cm; Wt 86.3 kg
[~2017-07-24 08:25] MED LIST changes: +OXYTOCIN 30 UNITS/LR 500 ML BAG IV ONE
--- NOTE | 2017-07-24 08:59 | RADRPT ---
PROCEDURE: US OB biophysical profile. CLINICAL INDICATION: decreased movements. TECHNIQUE: Multiple sonographic images of the pelvis were obtained. The images were reviewed on a PACS workstation. COMPARISON: No prior studies are available for comparison. FINDINGS: There is a single intrauterine gestation. Cardiac activity is absent. There is a vertex presentation. The placenta is anterior. There is no evidence of placental abruption. There is a normal amount of amniotic fluid with an KENIA = 11.3 cm. Biophysical profile: movement 0/2 tone 0/2. breathing 0/2 KENIA 2/2 Total 2/8 RPTAT: AA . IMPRESSION: demise. A call report was made and the findings discussed with nurse Naheed at 07/24/2017 8:57:22 AM. . .Aureliano Pop MD, MD Date Time Electronically viewed and signed by .Aureliano Pop MD, MD on 07/24/2017 08:58 .S/
[2017-07-24] MEDS ORDERED: CARBOPROST 250 MCG INJ IM PRN ×2 (09:30→17:00)
[2017-07-24] MEDS ORDERED: MISOPROSTOL 200 MCG TAB PR PRN ×2 (09:30→17:00)
[2017-07-24] MEDS ORDERED: OXYTOCIN 30 UNITS/LR 500 ML IV PRN ×2 (09:30→17:00)
[2017-07-24] MEDS ORDERED: CEFAZOLIN 2 GM/50 ML (PMX) 50 ML IV SCH (09:30)
[2017-07-24] MEDS ORDERED: OXYTOCIN 30 UNITS/LR 500 ML IV SCH (09:30)
[2017-07-24] MEDS ORDERED: METHYLERGONOVINE 0.2 MG INJ IM PRN ×2 (09:30→17:00)
[2017-07-24 09:37] VITALS: Ht 142.2 cm; Wt 86.3 kg
[2017-07-24] MEDS ORDERED: PHENYLephrine (100 MCG/ML) 5ML SYG ONE ×3 (09:54→12:00)
[2017-07-24] MEDS ORDERED: METOCLOPRAMIDE 10 MG INJ ONE (09:55)
[2017-07-24] MEDS ORDERED: KETOROLAC 30 MG INJ ONE (09:55)
[2017-07-24] MEDS ORDERED: DEXAMETHASONE 4 MG/ML 1 ML INJ ONE (09:55)
[2017-07-24] MEDS ORDERED: ONDANSETRON 4 MG INJ ONE (09:55)
[2017-07-24] MEDS ORDERED: morphine SULFATE/PF (10 MG/10 ML) INJ ONE (09:55)
[2017-07-24] MEDS ORDERED: OXYTOCIN 10 UNIT INJ ONE (09:55)
[2017-07-24] MEDS: LACTATED RINGER'S 1,000 ML IV SCH ×3 (09:58→20:33)
[2017-07-24] MEDS ORDERED: CITRIC ACID/SODIUM CITRATE 15 ML CUP PO ONE (10:30)
[2017-07-24] MEDS ORDERED: ONDANSETRON 4 MG INJ IV ONE (10:30)
[2017-07-24] MEDS ORDERED: MIDAZOLAM 1 MG/ML 2 ML INJ ONE (11:50)
--- NOTE | 2017-07-24 12:13 | SIPON ---
Date/Time of Note Date/Time of Note DATE: 07/24/17 TIME: 12:11 Operative Report Preoperative Diagnosis iup 38.6 weeks 2) demise 3)h/o of bacteremia 4)GDM Postoperative Diagnosis same Operation/Procedure Performed Repeat LST c/s Surgeon see signature line assistant pastry chef Louise light Anesthesia: spinal Estimated blood loss: other Transfusion Required none Specimen placenta, cord blood, placental cultures Grafts/Implants none Complications none SARAI GREWAL MD Jul 24, 2017 12:13
--- NOTE | 2017-07-24 12:13 | SIPON ---
Date/Time of Note Date/Time of Note DATE: 07/24/17 TIME: 12:11 Operative Report Preoperative Diagnosis iup 38.6 weeks 2) demise 3)h/o of bacteremia 4)GDM Postoperative Diagnosis same Operation/Procedure Performed Repeat LST c/s Surgeon see signature line mri assistant Louise light Anesthesia: spinal Estimated blood loss: other Transfusion Required none Specimen placenta, cord blood, placental cultures Grafts/Implants none Complications none SARAI GREWAL MD Jul 24, 2017 12:13
[2017-07-24] MEDS ORDERED: KETOROLAC 30 MG INJ IV PRN (12:30)
[2017-07-24] MEDS ORDERED: ONDANSETRON 4 MG INJ IV PRN (12:30)
[2017-07-24] MEDS ORDERED: HYDROmorphONE 0.5 MG/0.5 ML SYG IV PRN ×2 (12:30)
[2017-07-24] MEDS ORDERED: NALOXONE (0.4 MG/ML) INJ IV PRN (12:30)
[2017-07-24] MEDS ORDERED: NALBUPHINE HCL (10 MG/1 ML) INJ IV PRN (12:30)
[2017-07-24] MEDS ORDERED: morphine 4 MG/ML VIAL IV PRN (12:30)
[2017-07-24] MEDS ORDERED: ACETAMINOPHEN 500 MG TAB PO PRN (12:30)
[2017-07-24] MEDS ORDERED: morphine 2 MG INJ IV PRN (12:30)
[2017-07-24] MEDS ORDERED: ZOLPIDEM 5 MG TAB PO PRN (12:30)
[2017-07-24] MEDS ORDERED: DIPHENHYDRAMINE 50 MG INJ IV PRN (12:30)
[2017-07-24] MEDS ORDERED: HYDROCODONE/APAP (5/325) TAB PO PRN ×3 (12:30→17:00)
[2017-07-24 16:30] VITALS: BP 109/67; PULSE 69; RESP 20
[2017-07-24] MEDS ORDERED: LANOLIN 7 GM TUBE TOP PRN (17:00)
[2017-07-24 17:53] VITALS: BP 113/70; PULSE 72; RESP 18
[2017-07-24] MEDS: OXYTOCIN 30 UNITS/LR 500 ML IV SCH ×2 (20:00→20:55)
[2017-07-24 20:32] VITALS: BP 107/63; PULSE 88; RESP 17
[2017-07-24] MEDS: IBUPROFEN 800 MG TAB PO SCH (22:00)
[2017-07-24 22:50] VITALS: BP 112/69; PULSE 83; RESP 16
[2017-07-25] VITALS (7 sets, daily range): BP systolic 92–113; BP diastolic 53–73; PULSE 78–81; RESP 16–18
[2017-07-25] MEDS: LACTATED RINGER'S 1,000 ML IV SCH ×3 (00:55→08:55)
--- NOTE | 2017-07-25 04:19 | OPR ---
DATE OF OPERATION: PREOPERATIVE DIAGNOSES: 1. Intrauterine at 38 and 6/7 weeks. 2. History of section x1. The patient desires repeat. 3. Intrauterine demise. POSTOPERATIVE DIAGNOSES: 1. Intrauterine at 38 and 6/7 weeks. 2. History of section x1. The patient desires repeat. 3. Intrauterine demise. PROCEDURE: Repeat low segment transverse section. FINDINGS: 1. Nonviable . 2. Thick meconium. 3. Normal tubes and ovaries. SURGEON: Dennis Grewal MD. DIRECTOR OF CODING: . ESTIMATED BLOOD LOSS: 600. SPECIMEN: Placenta and cord blood. COMPLICATIONS: None. INDICATIONS: The patient is a 21-year-old G2, P1 who presents at 38 and 6/7 weeks with decreased fe rachana movement. The patient in triage heart tones could not be found. The patient had an ultra sound by radiology and by me personally, and intrauterine demise was confirmed. Discussion wa s had with the patient regarding induction of labor versus a repeat section. After all ris ks and benefits were discussed, patient desired to have a repeat section. PAST HISTORY: The patient had care in [place] and then transferred care to [place], had not found a doctor. The patient was admitted to the hospital approximately 2 weeks due to Pseudomonas aeruginosa bacteremia. She was hospitalized for 2 weeks for IV antibiotics. The patient was discha rged home with follow up instructions were all reviewed and again the patient presented with intraut erine demise. DESCRIPTION OF PROCEDURE: Patient brought to operating room where a spinal was found to be adequate . Patient was then prepped, draped in normal sterile fashion. ID was confirmed. Using a scalpel, a Pfannenstiel incision made. Incision taken to underlying fascia. The fascia nicked in the midlin e and extended laterally in both directions using the Crenshaw scissors. The fascia taken off the rectu s muscle superiorly, midline identified and entered bluntly. Bladder flap created and then bladder flap was then taken down. Low segment incision made on the uterus. Uterine incision was extended w ith manual extension. Infant's head was then delivered atraumatically. Rest of the delivere d. Cord cut and clamped. Findings were nonviable infant. Placenta delivered. It was noted that wh en the uterine incision was made, the patient had thick meconium. Uterine incision was closed with 0 Monocryl in running fashion. Second imbricating layer was also placed. Good hemostasis was noted . The uterus was placed back in abdominal cavity. Blood was cleared from the gutters. Rectus musc le and peritoneum were brought together in midline using a 2-0 Vicryl. The fascia was closed with 0 Vicryl. SubQ fat was closed with 2-0 plain. Skin was closed with suture and also with [place] nicholson. The patient tolerated procedure well. Lap and needle counts were correct x2. Patient stable to recovery. Dictated By: DENNIS GREWAL MD /NTS Conf#: [id number] DID#: [id number]
--- NOTE | 2017-07-25 04:19 | OPR ---
DATE OF OPERATION: PREOPERATIVE DIAGNOSES: 1. Intrauterine at 38 and 6/7 weeks. 2. History of section x1. The patient desires repeat. 3. Intrauterine demise. POSTOPERATIVE DIAGNOSES: 1. Intrauterine at 38 and 6/7 weeks. 2. History of section x1. The patient desires repeat. 3. Intrauterine demise. PROCEDURE: Repeat low segment transverse section. FINDINGS: 1. Nonviable . 2. Thick meconium. 3. Normal tubes and ovaries. SURGEON: Dennis Grewal MD. DUST OPERATOR: . ESTIMATED BLOOD LOSS: 600. SPECIMEN: Placenta and cord blood. COMPLICATIONS: None. INDICATIONS: The patient is a 21-year-old G2, P1 who presents at 38 and 6/7 weeks with decreased fe rachana movement. The patient in triage heart tones could not be found. The patient had an ultra sound by radiology and by me personally, and intrauterine demise was confirmed. Discussion wa s had with the patient regarding induction of labor versus a repeat section. After all ris ks and benefits were discussed, patient desired to have a repeat section. PAST HISTORY: The patient had care in [place] and then transferred care to [place], had not found a doctor. The patient was admitted to the hospital approximately 2 weeks due to Pseudomonas aeruginosa bacteremia. She was hospitalized for 2 weeks for IV antibiotics. The patient was discha rged home with follow up instructions were all reviewed and again the patient presented with intraut erine demise. DESCRIPTION OF PROCEDURE: Patient brought to operating room where a spinal was found to be adequate . Patient was then prepped, draped in normal sterile fashion. ID was confirmed. Using a scalpel, a Pfannenstiel incision made. Incision taken to underlying fascia. The fascia nicked in the midlin e and extended laterally in both directions using the Crenshaw scissors. The fascia taken off the rectu s muscle superiorly, midline identified and entered bluntly. Bladder flap created and then bladder flap was then taken down. Low segment incision made on the uterus. Uterine incision was extended w ith manual extension. Infant's head was then delivered atraumatically. Rest of the delivere d. Cord cut and clamped. Findings were nonviable infant. Placenta delivered. It was noted that wh en the uterine incision was made, the patient had thick meconium. Uterine incision was closed with 0 Monocryl in running fashion. Second imbricating layer was also placed. Good hemostasis was noted . The uterus was placed back in abdominal cavity. Blood was cleared from the gutters. Rectus musc le and peritoneum were brought together in midline using a 2-0 Vicryl. The fascia was closed with 0 Vicryl. SubQ fat was closed with 2-0 plain. Skin was closed with suture and also with [place] nicholson. The patient tolerated procedure well. Lap and needle counts were correct x2. Patient stable to recovery. Dictated By: DENNIS GREWAL MD /NTS Conf#: [id number] DID#: [id number]
--- NOTE | 2017-07-25 04:55 | HP ---
DATE OF ADMISSION: 07/24/2017 The patient is a 21-year-old G2, P1 who presents at 38 and 6/7 weeks complaining of decreased movement. The patient in triage was diagnosed with intrauterine demise. The patient states t hat she was having movement up until last night; however, this morning had no movement a nd presented to the OB triage. The patient had ultrasound by radiology and by me that confirmed bella t there was an intrauterine demise. The patient states that had no signs or symptoms over the last few days. No bleeding or leakage of fluid or any signs or symptoms. The patient had previous ly been admitted here for 2 weeks and had presented with some spotting, diagnosed with UTI. The pat ient had blood cultures with one of the blood cultures coming back as Pseudomonas. The patient had ID consult, recommended that the patient be inpatient for 2 weeks for IV antibiotics, which she rece ived. The patient also post-betamethasone had some elevated blood glucose, but was on p.r.n. insuli n with good sugar control. PAST MEDICAL HISTORY: None. PAST SURGICAL HISTORY: x1. MEDICATIONS: The patient had vitamins. PHYSICAL EXAMINATION: VITAL SIGNS: Stable. HEART: Regular rhythm. LUNGS: Clear to auscultation bilaterally. ABDOMEN: Soft, nontender, no rebound or guarding. Fundal height is 39 cm. EXTREMITIES: There is no edema. heart tones are absent. IMPRESSION: Intrauterine at 38 and 6/7 weeks, intrauterine demise. PLAN: Admit the patient for delivery. Discussion was had with the patient regarding versus re peat section. After all options were discussed, the patient desired to have a repeat josephine sunita section. The patient also told that we would attempt to determine the cause of the intrauterine demise with blood work, placenta examination and possible examination. The patient und erstood and consented to the repeat section. Risks and benefits discussed. The risk of in fection, bleeding, damage to organs, possibility of blood transfusion all discussed with patient. T he patient understood the risks and consented to the procedure. Dictated By: SARAI GREWAL MD /NTS Conf#: [id number] DID#: [id number]
[2017-07-25] MEDS: IBUPROFEN 800 MG TAB PO SCH ×3 (05:34→22:34)
--- NOTE | 2017-07-25 17:23 | QN ---
Documentation Comment POD#1 is stable afebrile tolerates Diet No VB +flatur +Adequate urine feels Depressed. VS stable Gen NAD Abd Soft NT ND Dressing to be removed Genitalia No blood at perinium --->Ambulation --->close Observation --->Advance Diet --->Social service DANUTA TAFOYA M.D. Jul 25, 2017 17:23
[2017-07-26 06:06] VITALS: BP 112/56; PULSE 92; RESP 18
[2017-07-26] MEDS: IBUPROFEN 800 MG TAB PO SCH ×2 (06:07→14:25)
[2017-07-26 07:40] VITALS: BP 110/55; PULSE 91; RESP 18
--- NOTE | 2017-07-26 14:57 | PN ---
Date/Time of Note Date/Time of Note DATE: 07/26/17 TIME: 14:52 OB Subjective Subjective Subjective Denies any complaints. Ambulating. Tolerates a regular diet. Past flatus. Denies any depressive symptoms. Requests to go home today. OB Objective Objective Objective GA: Alert and oriented 4. Does not appear to be in any acute distress. Abdomen: Soft, appropriate tenderness in the incision. No discharge no erythema Incision: Clean, dry and intact Extremities: No calf tenderness, bilateral symmetric swelling of lower extremity. No cords palpable, negative Homans sign lungs: Clear to auscultation bilaterally CV: RRR Hematology - 72 Hrs Test 07/24/17 09:30 07/25/17 06:32 White Blood Count 7.610^3/ul (4.8-10.8) 9.010^3/ul (4.8-10.8) Red Blood Count 4.5510^6/ul (4.20-5.40) # 3.5910^6/ul (4.20-5.40) #L Hemoglobin 12.3g/dl (12.0-16.0) # 9.4g/dl (12.0-16.0) #L Hematocrit 37.8% (37.0-47.0) # 30.1% (37.0-47.0) #L Mean Corpuscular Volume 83.1fl (82.0-101.0) 83.8fl (82.0-101.0) Mean Corpuscular Hemoglobin 27.0pg (29.0-33.0) L 26.2pg (29.0-33.0) L Mean Corpuscular Hemoglobin Concent 32.5g/dl (32.0-37.0) 31.2g/dl (32.0-37.0) L Red Cell Distribution Width 16.4% (11.5-14.5) H 16.7% (11.5-14.5) H Platelet Count 38546^3/UL (140-415) # 29641^3/UL (140-415) Mean Platelet Volume 11.8fl (7.4-10.4) H 11.5fl (7.4-10.4) H Neutrophils % 59.7% (39.0-77.0) 63.4% (39.0-77.0) Lymphocytes % 30.1% (15.0-51.0) 26.2% (15.0-51.0) Monocytes % 8.6% (0.0-11.0) 9.5% (0.0-11.0) Eosinophils % 0.9% (0.0-7.0) 0.4% (0.0-7.0) Basophils % 0.3% (0.0-2.0) 0.2% (0.0-2.0) Nucleated Red Blood Cells % 0.0/100WBC (0.0-0.0) 0.0/100WBC (0.0-0.0) Neutrophils # 4.510^3/ul (1.6-7.5) 5.710^3/ul (1.6-7.5) Lymphocytes # 2.310^3/ul (0.8-2.9) 2.410^3/ul (0.8-2.9) Monocytes # 0.710^3/ul (0.3-0.9) 0.910^3/ul (0.3-0.9) Eosinophils # 0.110^3/ul (0.0-0.5) 0.010^3/ul (0.0-0.5) Basophils # 0.010^3/ul (0.0-0.1) 0.010^3/ul (0.0-0.1) Nucleated Red Blood Cells # 0.010^3/ul (0.0-0.0) 0.010^3/ul (0.0-0.0) Kleihauer-Betke Stain 0.0000F/ARatio (0.0000) Chemistry Test 07/24/17 09:30 07/26/17 05:53 Sodium Level 138mmol/L (135-144) Potassium Level 4.7mmol/L (3.5-5.1) Chloride Level 105mmol/L (97-110) Carbon Dioxide Level 22mmol/L (21-31) Anion Gap 16 (8-16) Blood Urea Nitrogen 8mg/dl (7-20) Creatinine 0.52mg/dl (0.44-1.00) Glucose Level 108mg/dl (70-220) Hemoglobin A1c 5.9% (0-5.9) Calcium Level 9.0mg/dl (8.4-10.2) Total Bilirubin 0.3mg/dl (0.2-1.3) Direct Bilirubin 0.00mg/dl (0.00-0.20) Indirect Bilirubin 0.3mg/dl (0-1.1) Aspartate Amino Transf (AST/SGOT) 50IU/L (15-46) H Alanine Aminotransferase (ALT/SGPT) 88IU/L (13-69) H Alkaline Phosphatase 338IU/L (42-121) H Total Protein 7.7g/dl (6.1-8.1) Albumin 4.0g/dl (3.3-4.9) Globulin 3.70g/dl (1.3-3.2) H Albumin/Globulin Ratio 1.08 Fasting Glucose 99mg/dl (70-110) OB Assessment/Plan Other Assessment: Status post repeat section demise at 38+ weeks, unclear etiology GDM Status post social service technician consultation due to demise Patient currently does not have any evidence of depressive symptoms Has not established any OB care since moved Recommended the patient to stay today Plan to discuss with social service technician for providing a clinic for and postop care. Patient strongly desired to go home She decided to sign AMA. Explained to the patient importance of close follow-up after discharge from the hospital for wound care and evaluation for depression since the patient is at risk of. Decided to sign AMRADHAMES NOVA MD Jul 26, 2017 14:57
--- NOTE | 2017-07-26 14:57 | PN ---
Date/Time of Note Date/Time of Note DATE: 07/26/17 TIME: 14:52 OB Subjective Subjective Subjective Denies any complaints. Ambulating. Tolerates a regular diet. Past flatus. Denies any depressive symptoms. Requests to go home today. OB Objective Objective Objective GA: Alert and oriented 4. Does not appear to be in any acute distress. Abdomen: Soft, appropriate tenderness in the incision. No discharge no erythema Incision: Clean, dry and intact Extremities: No calf tenderness, bilateral symmetric swelling of lower extremity. No cords palpable, negative Homans sign lungs: Clear to auscultation bilaterally CV: RRR Hematology - 72 Hrs Test 07/24/17 09:30 07/25/17 06:32 White Blood Count 7.610^3/ul (4.8-10.8) 9.010^3/ul (4.8-10.8) Red Blood Count 4.5510^6/ul (4.20-5.40) # 3.5910^6/ul (4.20-5.40) #L Hemoglobin 12.3g/dl (12.0-16.0) # 9.4g/dl (12.0-16.0) #L Hematocrit 37.8% (37.0-47.0) # 30.1% (37.0-47.0) #L Mean Corpuscular Volume 83.1fl (82.0-101.0) 83.8fl (82.0-101.0) Mean Corpuscular Hemoglobin 27.0pg (29.0-33.0) L 26.2pg (29.0-33.0) L Mean Corpuscular Hemoglobin Concent 32.5g/dl (32.0-37.0) 31.2g/dl (32.0-37.0) L Red Cell Distribution Width 16.4% (11.5-14.5) H 16.7% (11.5-14.5) H Platelet Count 77743^3/UL (140-415) # 01400^3/UL (140-415) Mean Platelet Volume 11.8fl (7.4-10.4) H 11.5fl (7.4-10.4) H Neutrophils % 59.7% (39.0-77.0) 63.4% (39.0-77.0) Lymphocytes % 30.1% (15.0-51.0) 26.2% (15.0-51.0) Monocytes % 8.6% (0.0-11.0) 9.5% (0.0-11.0) Eosinophils % 0.9% (0.0-7.0) 0.4% (0.0-7.0) Basophils % 0.3% (0.0-2.0) 0.2% (0.0-2.0) Nucleated Red Blood Cells % 0.0/100WBC (0.0-0.0) 0.0/100WBC (0.0-0.0) Neutrophils # 4.510^3/ul (1.6-7.5) 5.710^3/ul (1.6-7.5) Lymphocytes # 2.310^3/ul (0.8-2.9) 2.410^3/ul (0.8-2.9) Monocytes # 0.710^3/ul (0.3-0.9) 0.910^3/ul (0.3-0.9) Eosinophils # 0.110^3/ul (0.0-0.5) 0.010^3/ul (0.0-0.5) Basophils # 0.010^3/ul (0.0-0.1) 0.010^3/ul (0.0-0.1) Nucleated Red Blood Cells # 0.010^3/ul (0.0-0.0) 0.010^3/ul (0.0-0.0) Kleihauer-Betke Stain 0.0000F/ARatio (0.0000) Chemistry Test 07/24/17 09:30 07/26/17 05:53 Sodium Level 138mmol/L (135-144) Potassium Level 4.7mmol/L (3.5-5.1) Chloride Level 105mmol/L (97-110) Carbon Dioxide Level 22mmol/L (21-31) Anion Gap 16 (8-16) Blood Urea Nitrogen 8mg/dl (7-20) Creatinine 0.52mg/dl (0.44-1.00) Glucose Level 108mg/dl (70-220) Hemoglobin A1c 5.9% (0-5.9) Calcium Level 9.0mg/dl (8.4-10.2) Total Bilirubin 0.3mg/dl (0.2-1.3) Direct Bilirubin 0.00mg/dl (0.00-0.20) Indirect Bilirubin 0.3mg/dl (0-1.1) Aspartate Amino Transf (AST/SGOT) 50IU/L (15-46) H Alanine Aminotransferase (ALT/SGPT) 88IU/L (13-69) H Alkaline Phosphatase 338IU/L (42-121) H Total Protein 7.7g/dl (6.1-8.1) Albumin 4.0g/dl (3.3-4.9) Globulin 3.70g/dl (1.3-3.2) H Albumin/Globulin Ratio 1.08 Fasting Glucose 99mg/dl (70-110) OB Assessment/Plan Other Assessment: Status post repeat section demise at 38+ weeks, unclear etiology GDM Status post social media assistant consultation due to demise Patient currently does not have any evidence of depressive symptoms Has not established any OB care since moved Recommended the patient to stay today Plan to discuss with social media assistant for providing a clinic for and postop care. Patient strongly desired to go home She decided to sign AMA. Explained to the patient importance of close follow-up after discharge from the hospital for wound care and evaluation for depression since the patient is at risk of. Decided to sign AMRADHAMES NOVA MD Jul 26, 2017 14:57
== END 2017-07-26 16:00 | disposition left against medical advice (07) | DRG 765 ==
LOC: OBT 08:25 → L-D 08:25 → EEVIPCON 09:25 → L-D 09:25 → OBT 09:29 → L-D 11:15 → OBG 16:09
PROC: 10D00Z1 Extraction of Products of Conception, Low, Open Approach (ICD-10-PCS; principal; 2017-07-25)
DX: O34.211 Maternal care for low transverse scar from previous cesarean delivery (principal); O36.4XX0 Maternal care for intrauterine death, not applicable or unspecified; Z37.1 Single stillbirth; Z3A.38 38 weeks gestation of pregnancy
CPT/HCPCS: 76818; 80053; 80307; 82947; 83036; 85025; 85460; 85610; 85730; 86592; 86850; 86900; 86901; 87040; 87070; 87075; 88307; 94760; G0463; J0690; J1100; J1200; J1885; J2250; J2274; J2370; J2405; J2590; J2765; J7120